=== PATIENT | male | born 1970 | race Caucasian/White ===

== ENCOUNTER 2017-02-18 15:34 | Emergency (ER) | payer MEDICAID ==
[~2017-02-18] VITALS: Ht 180.3 cm; Wt 176.0 kg
[2017-02-18 17:25] VITALS: BP 149/99
== END 2017-02-18 17:25 | disposition home or self-care (01) ==
LOC: ED 15:34
DX: M65.4 Radial styloid tenosynovitis [de Quervain] (principal); E11.9 Type 2 diabetes mellitus without complications; I10 Essential (primary) hypertension; E66.01 Morbid (severe) obesity due to excess calories
CPT/HCPCS: J1100; J1885

== ENCOUNTER 2017-11-03 16:31 | Inpatient (IN) | payer OTHER ==
[~2017-11-03] VITALS: Ht 180.3 cm; Wt 173.4 kg
--- NOTE | 2017-11-03 17:00 | NUR ---
PT STATES HE NOTICED A SMALL RED DOT/SHELBY YESTERDAY TO RT LOWER ABDOMEN. STATES HE NOTICED RAPID PROGRESSION OF REDNESS AND PAIN FROM THAT POINT FORWARD. THIS AFTERNOON HE STATES AREA BECAME HOT TO TOUCH AND INCREASINGLY MORE PAINFUL. COMFORT MEASURES AND SUPPORTIVE CARE INITIATED. PREP FOR ERMD MSE.
--- NOTE | 2017-11-03 17:35 | NUR ---
ULTRASOUND AT . ALL LAB DRAWN AND SENT.
[2017-11-03 17:39] LABS: BASOPHIL % 0.7 % (0-2); PLATELET COUNT 261 x10^3mcL (130-400)
[2017-11-03 17:48] LABS: CALCIUM 9.2 mg/dL (8.5-10.1); CARBON DIOXIDE 26.6 mmol/L (21-32); CHLORIDE SERUM 97 mmol/L (98-107); CREATININE SERUM 0.9 mg/dL (0.7-1.3); GFR1 > 60 mL/min; GLUCOSE SERUM 303 mg/dL (74-106); POTASSIUM SERUM 3.8 mmol/L (3.5-5.1); SODIUM SERUM 132 mmol/L (136-145)
[2017-11-03 17:52] LABS: RED CELL DISTRIBUTION WIDTH 16.5 % (11.5-14.5)
--- NOTE | 2017-11-03 17:53 | NUR ---
EKG DONE, IV ABX INITIATED.
[2017-11-03 17:58] LABS: ALBUMIN 3.5 g/dL (3.4-5.0); ALKALINE PHOSPHATASE 97 U/L (46-116); ALT/SGPT 11 U/L (16-63); AST/SGOT 17 U/L (15-37); BILIRUBIN TOTAL 0.37 mg/dL (0.20-1.00); TOTAL PROTEIN, SERUM 8.1 g/dL (6.4-8.2)
[2017-11-03] MEDS ORDERED: [UNRECOGNIZED DRUG - OTHER] (17:58)
[2017-11-03] MEDS ORDERED: PEPCID20 MG (17:59)
[2017-11-03] MEDS ORDERED: LISINOPRIL2.5 MG (17:59)
[2017-11-03] MEDS ORDERED: HUMALOG100 U/ML (17:59)
[2017-11-03] MEDS ORDERED: METOPROLOL SUCC50 M2 (17:59)
[2017-11-03] MEDS ORDERED: FLEXEPAX COMBO1 EACH (18:00)
--- NOTE | 2017-11-03 18:00 | NUR ---
PENDING ADMIT. MRSA SWAB OBTAINED. MED REC DONE. BELONGINGS DONE.
--- NOTE | 2017-11-03 18:14 | NUR ---
REPORT CALLED TO LACHO ARCHIBALD FOR TRANSPORT TO ROOM 200A.
[2017-11-03 18:32] LABS: MAGNESIUM 1.8 mg/dL (1.8-2.4); PHOSPHOROUS 3.3 mg/dL (2.5-4.9)
[2017-11-03 18:34] LABS: CHOLESTEROL/HDL RATIO 4.7
[2017-11-03 18:39] LABS: FREE T4 1.05 ng/dL (0.76-1.46); FREE THYROXINE INDEX 2.7 ug/dL (1.4-4.5); T4(THYROXINE) 8.1 ug/dL (4.7-13.3)
[2017-11-03 18:42] LABS: T3 TOTAL 1.27 ng/mL
--- NOTE | 2017-11-03 18:52 | NUR ---
PENDING TRANSPORT TO UNIT. DR. ACUNA ATTEMPTS TO ASPIRATE AT LOWER RT ABD SITE PRIOR TO CHART COMPLETION AND TRANSPORT TO UNIT. DR. ACUNA STATES ONLY MINUTE AMOUNT DRAINAGE, NOT ENOUGH TO SEND TO LAB. TO ENDORSE CONTINUED CARE TO NOC RN FOR TRANSPORT TO UNIT.
--- NOTE | 2017-11-03 19:02 | NUR ---
UPDATE CALLED TO SANG ARCHIBALD FOR TRANSPORT TO UNIT NOW.
--- NOTE | 2017-11-03 19:20 | NUR ---
RECEIVED PT FROM ED VIA [email or web address], CAME IN DUE TO ABDOMINAL PAIN AND REDNESS THAT STARTED LAST NIGHT. AAOX4. NO SOB NOTED. NSR ON THE MONITOR. C/O 9/10 BURNING PAIN ON THE RLQ, WORSE WHEN TOUCHED. PT'S RLQ OF THE ABDOMEN IS RED AND WARM TO TOUCH. IV SITE PATENT AND INTACT. SIDE RAILS UPX2. CALL LIGHT ON REACH. ENDORSED TO PRIMARY NURSE SHARLA FOR CONTINUITY OF CARE.
[2017-11-03 19:29] VITALS: BP 149/79
--- NOTE | 2017-11-03 19:40 | NUR ---
ERECEIVED PT FROM DRAGAN HINSON, ALL QUESTIONS ADDRESSED, WILL ENDORSE CARE. PT LYING IN BED, AOX4, C/O PAIN IN ABD AREA, BURNING 8/10, DOES NOT RADIATE. EDEMA NOTED BLE, NO OTHER COMPLAINTS. WILL CONTINUE TO MONITOR
[2017-11-03 21:24] VITALS: BP 149/79
--- NOTE | 2017-11-03 21:49 | NUR ---
DR ORTA AT BEDSIDE, NO NEW ORDERS, WILL CONTINUE TO MONITOR
[2017-11-03 22:14] VITALS: BP 121/77
--- NOTE | 2017-11-04 01:12 | NUR ---
PT IN BED RESTING, NO S/S OF DISTRESS, WILL CONTINUE TO MONITOR
--- NOTE | 2017-11-04 02:26 | NUR ---
DR ORTA ORDERED TO TITRATE NS TO 150ML/HR, WILL CONTINUE TO MONITOR
[2017-11-04 04:00] VITALS: BP 132/92
[2017-11-04 07:25] LABS: BASOPHIL % 0.3 % (0-2); PLATELET COUNT 212 x10^3mcL (130-400)
[2017-11-04 07:45] LABS: CALCIUM 8.1 mg/dL (8.5-10.1); CARBON DIOXIDE 26.5 mmol/L (21-32); CHLORIDE SERUM 100 mmol/L (98-107); CREATININE SERUM 0.7 mg/dL (0.7-1.3); GFR1 > 60 mL/min; GLUCOSE SERUM 246 mg/dL (74-106); MAGNESIUM 1.8 mg/dL (1.8-2.4); PHOSPHOROUS 3.3 mg/dL (2.5-4.9); POTASSIUM SERUM 3.9 mmol/L (3.5-5.1); SODIUM SERUM 133 mmol/L (136-145)
--- NOTE | 2017-11-04 08:00 | NUR ---
AWAKE AND ALERT. TEMP 98.9. TELE #8 SINUS RHYTHM RATE 89. RESP 18 EVEN. BREATH SOUNDS CLEAR. PULSE OX 96% RA. ABD ROUNDED AND SOFT, BOWEL TONES PRESENT. RIGHT QUADRANT NOTED WITH AREA CIRCLED FROM ER I&D SITE. NO DRAINAGE NOTED AT THIS TIME. AREA REMAINS REDDENED IN COLOR. PAIN SCALE 5/10 AT THIS TIME. REPORTS "GOOD RELIEF FROM EARLIER PAIN PILL." PT IS OBESE. NO PITTING EDEMA. PULSES PRESENT. SCD ORDERED FROM EXECUTIVE ADVISOR. IV PATEN RIGHT HAND INFUSING NORMAL SALINE 150CC/HR. SIDE RAILS UP X2. CALL LIGHT IN REACH.
--- NOTE | 2017-11-04 09:50 | NUR ---
DR WU IN TO SEE PT. ORDERS TO KEEP PT NPO FOR I&D RIGHT ABD ABSCESS. PT UPDATED WITH PLAN OF CARE. PT C/O DISCOMFORT TO RIGHT SIDE OF ABD 07/07. REQUESTS PAIN MED. MED WITH DILAUDID 2MG PO AND TORADOL 30MG IVP ORDERED. RADHA RN IN SURGERY UPDATED WITH PT STATUS.
[2017-11-04 10:30] VITALS: BP 154/95
--- NOTE | 2017-11-04 10:45 | NUR ---
PT REPORTS "PAIN IS MUCH BETTER 2/10." INSTRUCTED WITH NEED FOR URINE SAMPLE. CONTAINER PROVIDED.
[2017-11-04 13:08] LABS: UA SPECIFIC GRAVITY 1.015 (1.005-1.035); microscopic required? YES; urine erythrocyte 1+ (NEGATIVE)
[2017-11-04 14:40] VITALS: BP 128/85
--- NOTE | 2017-11-04 15:00 | NUR ---
IV CONVERTED TO SALINE LOCK. ARMBAND IDENTIFIED. PT TAKEN DOWN TO OR VIA GURNEY AT THIS TIME.
[2017-11-04 15:09] LABS: AMPHETAMINE QUAL UR NONE DETECTED (NEG <=1000)
--- NOTE | 2017-11-04 17:10 | NUR ---
RETURNED FROM RECOVERY ROOM POST OP TO 200b. MADE COMFORTABLE. TEMP 98.2. TELE APPLIED SINUS RHYTHM. GL=212/80. DRESSING CDI RIGHT ABD. C/O MILD BURNING 5/10. HAS NOT VOIDED. NO EDEMA. SCD IN PLACE. IV PATENT RIGHT HAND. IVF RESUMED. CALL LIGHT IN REACH.
--- NOTE | 2017-11-04 17:30 | NUR ---
RIL=[id number]. RISS 6 UNITS COVERAGE. DINNER ORDERED. C/O BURNING PAIN 07/07 TO INCISIONAL SITE. MED WITH TORADOL 30MG IVP ORDERED. CALL LIGHT IN REACH.
--- NOTE | 2017-11-04 18:00 | NUR ---
REPORTS "STILL HAVING BURNING IN INCISION. PAIN 07/07. REQUESTS DILAUDID PO. MED WITH DILAUDID 2MG PO ORDERED.
--- NOTE | 2017-11-04 18:45 | NUR ---
REPORTS "FEELING BETTER PAIN DOWN TO 2/10." EATING DINNER MEAL. CALL LIGHT IN REACH.
--- NOTE | 2017-11-04 19:35 | NUR ---
RECEIVED REPORT FROM DAY SHIFT RN. PT RESTING IN BED COMFORTABLY. MINIMAL ABD DISCOMFORT. REFUSED PAIN MEDICATION AT THIS TIME. NO RESP DISTRESS ON ROOM AIR. ABD DRESSING ON RLQ, CDI. IV ON RIGHT HAND, NS INFUSING. SAFETY MEASURES IN PLACE. INSTRUCTED PT TO CALL IF ASSISTANCE IS NEEDED. CALL LIGHT WITHIN REACH.
[2017-11-04 20:58] VITALS: BP 107/67
[2017-11-05] VITALS (7 sets, daily range): BP systolic 146–168; BP diastolic 89–100; Ht 180.3 cm; Wt 173.4 kg
--- NOTE | 2017-11-05 06:40 | NUR ---
PT SLEPT AT LONG INTERVALS THROUGHOUT SHIFT. C/O ABD PAIN X2, MEDICATED WITH DILAUDID. SAFETY MEASURES MAINTAINED. BED IN LOWEST POSITION. SIDE RAILS UP X2. CALL LIGHT WITHIN REACH.
[2017-11-05 06:54] LABS: BASOPHIL % 0.4 % (0-2); PLATELET COUNT 210 x10^3mcL (130-400)
[2017-11-05 06:57] LABS: CALCIUM 8.2 mg/dL (8.5-10.1); CARBON DIOXIDE 26.3 mmol/L (21-32); CHLORIDE SERUM 102 mmol/L (98-107); CREATININE SERUM 0.6 mg/dL (0.7-1.3); GFR1 > 60 mL/min; GLUCOSE SERUM 190 mg/dL (74-106); SODIUM SERUM 132 mmol/L (136-145)
[2017-11-05 07:07] LABS: RED CELL DISTRIBUTION WIDTH 16.9 % (11.5-14.5)
--- NOTE | 2017-11-05 08:10 | NUR ---
PT AWAKE AND ALERT. TEMP 98.7. TELE #8 SINUS RHYTHM RATE 68. RESP 20 EVEN. BREATH SOUNDS CLEAR. PULSE OX 94% RA. ABD ROUNDED PT OBESE WITH PENDULOUS ABD. DRESSING CDI RMQ. C/O BURING PAIN 07/07. REQUESTS TORADOL. MED WITH TORADOL 30MG IVP ORDERED. UP TO BATHROOM AND VOIDED. IV PATENT RAC INFUSING NORMAL SALINE 150CC/HR. NO PITTING EDEMA. PULSES PRESENT. SCD IN PLACE. SIDE RAILS UP X2. CALL LIGHT IN REACH.
--- NOTE | 2017-11-05 08:30 | NUR ---
PT REPORTS PAIN HAS "COME DOWN TO 4/10, BETTER." DR MEDINA HERE ON ROUNDS. UPDATED WITH PT STATUS. NO CHANGE IN ORDERS.
--- NOTE | 2017-11-05 09:00 | NUR ---
DR MORGAN AND MEDICAL TEAM IN ON ROUNDS. CHARGE NURSE PRESENT. REVIEWED PLAN OF CARE. PT VERBALIZED UNDERSTANDING.
--- NOTE | 2017-11-05 10:00 | NUR ---
DR WU IN TO SEE PT.
--- NOTE | 2017-11-05 12:00 | NUR ---
GGL=[id number]. RISS 3 UNITS COVERAGE. AMBULATES WELL IN HALLWAY. PASSING SOME GAS, NO BM SINCE SURGERY.
--- NOTE | 2017-11-05 14:01 | NUR ---
PT C/O ABD INCISIONAL DISCOMFORT 06/06. MED WITH TORADOL 30MG IVP. DRESSING REMOVED FROM ABD. PACKING NOTED. WOUND CULTURE TAKEN ORDERED SENT TO LAB. DRESSING APPLIED. SECURED WITH TAPE. TOLERATED WELL. CALL LIGHT IN REACH.
--- NOTE | 2017-11-05 14:30 | NUR ---
REPORTS "PAIN DOWN TO 4/10." AMBULATES WELL.
--- NOTE | 2017-11-05 15:00 | NUR ---
PT SLEEPING, NO DISTRESS. IV PATENT.
--- NOTE | 2017-11-05 17:00 | NUR ---
PT C/O INCISIONAL BURNING PAIN 07/07. BP ELEVATED. SEE DOCUMENTATION. MED WITH DILAUDID 2MG PO ORDERED. ZEY=[id number]. TO COVER WITH RISS 3 UNITS SQ.
--- NOTE | 2017-11-05 17:50 | NUR ---
PT AWAKE EATING DINNER MEAL. STATES "FEELS BETTER NOW, PAIN DOWN TO 4/10. I REALLY FEEL IT WHEN THE TORADOL WEARS OFF." MW=[id number]/[phone]. CALL LIGHT IN REACH. NO BM YET.
--- NOTE | 2017-11-05 19:30 | NUR ---
RECEIVED REPORT FROM DAY SHIFT RN. PT RESTING IN BED COMFORTABLY. NO SOB ON ROOM AIR. NO C/O PAIN AT THIS TIME. ABD DRESSING, CDI. IV ON R HAND, NS INFUSING. SAFETY MEASURES IN PLACE. BED IN LOWEST POSITION. SIDE RAILS UP X2. INSTRUCTED PT TO CALL IF ASSISTANCE IS NEEDED. CALL LIGHT WITHIN REACH.
--- NOTE | 2017-11-05 22:10 | NUR ---
ENDORSED CONTINUITY OF CARE TO DRAGAN PURI.
--- NOTE | 2017-11-05 22:14 | NUR ---
RECEIVED REPORT AND PATIENT FROM DRAGAN VASQUEZ TO RESUME CARE.
--- NOTE | 2017-11-06 05:05 | NUR ---
PATIENT RESTED IN INTERVALS THROUGHOUT THE NIGHT. NO DISTRESS NOTED. MEDICATED FOR ABD PAIN WITH DILAUDID PO X 2 PER DOCTOR'S PRN ORDER. PAIN MANAGED THROUGHOUT THE NIGHT. ALL NEEDS MET. SAFETY AND COMFORT MEASURES MAINTAINED. BED IN LOWEST POSITION. CALL LIGHT WITHIN REACH. WILL CONTINUE TO MONITOR AND ENDORSE CARE TO NEXT SHIFT NURSE.
[2017-11-06 05:12] VITALS: BP 159/96
[2017-11-06 06:19] LABS: CALCIUM 8.4 mg/dL (8.5-10.1); CARBON DIOXIDE 23.7 mmol/L (21-32); CHLORIDE SERUM 100 mmol/L (98-107); CREATININE SERUM 0.7 mg/dL (0.7-1.3); GFR1 > 60 mL/min; GLUCOSE SERUM 161 mg/dL (74-106); POTASSIUM SERUM 3.9 mmol/L (3.5-5.1); SODIUM SERUM 131 mmol/L (136-145)
[2017-11-06 06:26] LABS: BASOPHIL % 0.3 % (0-2); PLATELET COUNT 252 x10^3mcL (130-400)
[2017-11-06 06:53] LABS: RED CELL DISTRIBUTION WIDTH 17.3 % (11.5-14.5)
--- NOTE | 2017-11-06 07:35 | NUR ---
RECEIVED THE PATIENT AWAKE AND ORIENTED TO PERSON, PLACE AND TIME. DENIED ANY SHORTNESS OF BREATH, NAUSEA/VOMITING. PATIENT STATED HAVING MILD SORENESS TO RLQ WOUND, AND TOLERATED THE PAIN. CONTINUE TO MONITOR AND MEDICATE FOR PAIN PRN. RLQ WOUND WITH DRESSING INTACT. IVF NS VIA H/L TO RIGHT HAND. TELE # 8 READS SINUS TACHYCARDIA. CALL LIGHT WITHIN REACH. SIDE RAILS UP X3.
--- NOTE | 2017-11-06 09:45 | NUR ---
DR. MEDINA-RESIDENT WAS NOTIFIED THAT THE PATIENT'S MONITOR SHOWS OCCASIONAL PVC AND 1 DROP OF QRS AT ABOUT 0705 AM THIS MORNING. DOCTOR ORDERED EKG TO CHECK THE RHYTHMS AGAIN.
--- NOTE | 2017-11-06 09:55 | NUR ---
DR. MOCTEZUMA AND THE TEAM WERE MAKING ROUND TO SEE THE PATIENT. THE CARE PLAN WAS DISCUSSED WITH THE PATIENT; THE PATIENT VERBALIZED UNDERSTANDING.
[2017-11-06 10:05] VITALS: BP 148/98
[2017-11-06 14:20] VITALS: BP 145/85
[2017-11-06] MEDS ORDERED: CLINDAMYCIN HC300 MG PO (14:30)
[2017-11-06] MEDS ORDERED: BD LACTINEX1.4 MG PO (14:30)
[2017-11-06] MEDS ORDERED: NOR10T PO (14:31)
[2017-11-06] MEDS ORDERED: COLACE100 MG PO (14:32)
--- NOTE | 2017-11-06 14:58 | NUR ---
DR. WU CALLED IN AND VERBALIZED ORDERING TO CHANGE THE PACKING AND DRESSING. THE OLD DRESSING AND PACKING WERE REMOVED. THE WOUND WAS CLEANSED WITH WOUND CLEANSER, AND THE PHOTO WAS TAKEN BEFORE THE WOUND WAS PACKED AND NEW DRESSING WAS APPLIED. DILAUDID 2MG PO WAS MEDICATED TO THE PATIENT BEFORE THE PROCEDURE; THE PATIENT TOLERATED THE PROCEDURE.
[2017-11-06 15:20] VITALS: BP 145/85
--- NOTE | 2017-11-06 16:00 | NUR ---
DR. MEDINA-RESIDENT VERBALIZED, "DISCHARGE THE PATIENT HOME NOW. PER THE BRONZE CHASER, THE PATIENT'S HEALTH INSURANCE AGENCY WILL SET UP HOME HEALTH FOR WOUND CARE FOR THE PATIENT."
--- NOTE | 2017-11-06 16:01 | NUR ---
DR. MEDINA-RESIDENT SAID, "DISCHARGE THE PATIENT HOME; TOMORROW, THE SUBMARINE ADVISORY TEAM WATCH OFFICER WILL CONTACT THE PATIENT'S INSURANCE AGENCY TO SET UP HOME HEALTH FOR WOUND CARE. DISCHARGE INSTRUCTION AND PRESCRIPTION WERE IMPLEMENTED TO THE PATIENT. THE QUESTIONS WERE ANSWERED, AND THE PATIENT VERBALIZED UNDERSTANDING. H/L WAS REMOVED WITH CATH INTACT. TELE WAS REMOVED. THE PATIENT WAS WAITING FOR A RIDE.
--- NOTE | 2017-11-06 16:06 | NUR ---
DISCHARGE INSTRUCTION AND PRESCRIPTION WERE IMPLEMENTED TO THE PATIENT. ALL QUESTIONS WERE ANSWERED, AND THE PATIENT VERBALIZED UNDERSTANDING. H/L WAS REMOVED WITH CATH INTACT. TELE WAS REMOVED. THE PATIENT WAS WAITING FOR A RIDE.
--- NOTE | 2017-11-06 16:10 | NUR ---
THE PATIENT WAS TAKEN TO THE LOBBY VIA WHEELCHAIR IN STABLE CONDITION. ALL BELONGINGS WERE SENT HOME WITH THE PATIENT UPON DISCHARGE.
== END 2017-11-06 16:10 | disposition home health service (06) | DRG 364 ==
LOC: ED 16:31 → DU 17:42
PROVIDERS: Emergency Medicine; Student in an Organized Health Care Education/Training Program; Surgery; ADMIT Family Medicine
PROC: 0W9F0ZZ Drainage of Abdominal Wall, Open Approach (ICD-10-PCS; principal; 2017-11-04 14:00)
DX: L02.211 Cutaneous abscess of abdominal wall (principal); N17.0 Acute kidney failure with tubular necrosis; D68.69 Other thrombophilia; E87.8 Other disorders of electrolyte and fluid balance, not elsewhere classified; E11.65 Type 2 diabetes mellitus with hyperglycemia; E87.1 Hypo-osmolality and hyponatremia; L03.311 Cellulitis of abdominal wall; N39.0 Urinary tract infection, site not specified; M54.9 Dorsalgia, unspecified; G89.29 Other chronic pain; E78.1 Pure hyperglyceridemia; E78.5 Hyperlipidemia, unspecified; I10 Essential (primary) hypertension; Z79.4 Long term (current) use of insulin; Z68.43 Body mass index [BMI] 50.0-59.9, adult
CPT/HCPCS: 82962; 83880; 84439; 94150; J0696; J1170; J1815; J1885; J2001; J2175; J2250; J2543; J2704; J3010; J3490; J7030; Q0092; Q0162

== ENCOUNTER 2017-11-15 04:51 | Inpatient (IN) | payer OTHER ==
[2017-11-15] VITALS (8 sets, daily range): BP systolic 123–179; BP diastolic 76–126; Ht 180.3 cm; Wt 137.4 kg
[~2017-11-15] VITALS: Ht 180.3 cm; Wt 137.4 kg
[~2017-11-15 04:51] MED LIST: BD LACTINEX1.4 MG PO; CLINDAMYCIN HC300 MG PO; COLACE100 MG PO; FLEXEPAX COMBO1 EACH; HUMALOG100 U/ML; LISINOPRIL2.5 MG PO; METOPROLOL SUCC50 M2; NOR10T PO; PEPCID20 MG; [UNRECOGNIZED DRUG - OTHER]
[2017-11-15 08:33] LABS: CALCIUM 8.5 mg/dL (8.5-10.1); CARBON DIOXIDE 25.3 mmol/L (21-32); CHLORIDE SERUM 101 mmol/L (98-107); CREATININE SERUM 0.6 mg/dL (0.7-1.3); GFR1 > 60 mL/min; GLUCOSE SERUM 283 mg/dL (74-106); POTASSIUM SERUM 3.9 mmol/L (3.5-5.1); SODIUM SERUM 135 mmol/L (136-145)
[2017-11-15 08:44] LABS: MAGNESIUM 1.8 mg/dL (1.8-2.4); PHOSPHOROUS 3.7 mg/dL (2.5-4.9)
[2017-11-15 08:51] LABS: CHOLESTEROL/HDL RATIO 4.7
[2017-11-15 09:01] LABS: T3 TOTAL 1.12 ng/mL
[2017-11-15] MEDS ORDERED: AMITRIPTYLINE H25 MG PO (09:10)
[2017-11-15] MEDS ORDERED: METOPROLOL SUCC50 M2 PO (09:21)
[2017-11-15 09:28] LABS: BASOPHIL % 0.4 % (0-2); PLATELET COUNT 240 x10^3mcL (130-400)
[2017-11-15 09:29] LABS: RED CELL DISTRIBUTION WIDTH 16.9 % (11.5-14.5)
[2017-11-15 09:38] LABS: FREE T4 1.21 ng/dL (0.76-1.46); T4(THYROXINE) 7.9 ug/dL (4.7-13.3)
[2017-11-15 20:28] LABS: UA SPECIFIC GRAVITY 1.015 (1.005-1.035); microscopic required? YES; urine erythrocyte NEGATIVE (NEGATIVE)
[2017-11-15 20:36] LABS: AMPHETAMINE QUAL UR NONE DETECTED (NEG <=1000)
[2017-11-16 05:30] VITALS: BP 148/82
[2017-11-16 05:35] VITALS: BP 138/93
[2017-11-16 07:23] LABS: CALCIUM 7.9 mg/dL (8.5-10.1); CHLORIDE SERUM 100 mmol/L (98-107); CREATININE SERUM 0.7 mg/dL (0.7-1.3); GFR1 > 60 mL/min; GLUCOSE SERUM 194 mg/dL (74-106); MAGNESIUM 1.8 mg/dL (1.8-2.4); PHOSPHOROUS 3.1 mg/dL (2.5-4.9); POTASSIUM SERUM 3.8 mmol/L (3.5-5.1); SODIUM SERUM 134 mmol/L (136-145)
[2017-11-16 07:36] LABS: PLATELET COUNT 231 x10^3mcL (130-400)
[2017-11-16 07:37] LABS: BASOPHIL % 2.2 % (0-2); RED CELL DISTRIBUTION WIDTH 15.4 % (11.5-14.5)
[2017-11-16 09:33] VITALS: BP 154/103
[2017-11-16 11:08] VITALS: BP 131/86
[2017-11-16 11:47] VITALS: BP 131/86
[2017-11-16] MEDS ORDERED: AVIDOXY100 MG PO ×3 (12:04→13:40)
[2017-11-16] MEDS ORDERED: NORCO1 TA2 PO ×2 (12:13→13:40)
[2017-11-16] MEDS ORDERED: LISINOPRIL2.5 MG PO ×2 (13:17→13:40)
[2017-11-16] MEDS ORDERED: AMITRIPTYLINE H25 MG PO ×2 (13:21→13:40)
[2017-11-16] MEDS ORDERED: BD LACTINEX1.4 MG PO ×2 (13:21→13:40)
[2017-11-16] MEDS ORDERED: PEPCID20 MG PO ×2 (13:21→13:40)
[2017-11-16] MEDS ORDERED: COLACE100 MG PO ×2 (13:21→13:40)
[2017-11-16] MEDS ORDERED: METOPROLOL SUCC50 M2 PO (13:40)
== END 2017-11-16 14:45 | disposition home or self-care (01) | DRG 791 ==
LOC: ED 04:51 → DU 05:52
PROVIDERS: Emergency Medicine; Surgery; ADMIT Family Medicine
PROC: 0WQF0ZZ Repair Abdominal Wall, Open Approach (ICD-10-PCS; principal; 2017-11-15 09:30)
DX: T81.32XA Disruption of internal operation (surgical) wound, not elsewhere classified, initial encounter (principal); D68.69 Other thrombophilia; E11.65 Type 2 diabetes mellitus with hyperglycemia; E87.1 Hypo-osmolality and hyponatremia; G89.29 Other chronic pain; M54.5 Low back pain; M19.90 Unspecified osteoarthritis, unspecified site; Z79.4 Long term (current) use of insulin; Z68.31 Body mass index [BMI] 31.0-31.9, adult; Z87.891 Personal history of nicotine dependence; Z87.11 Personal history of peptic ulcer disease
CPT/HCPCS: 82962; 83880; 84439; C1758; J0690; J1580; J1815; J2001; J2175; J2250; J2405; J2704; J3010; J3490; J7030; Q0092

== ENCOUNTER 2017-12-03 08:56 | Inpatient (IN) | payer OTHER ==
[~2017-12-03] VITALS: Ht 177.8 cm; Wt 169.9 kg
[~2017-12-03 08:56] MED LIST changes: +AMITRIPTYLINE H25 MG PO; +AVIDOXY100 MG PO; +METOPROLOL SUCC50 M2 PO; +NORCO1 TA2 PO; +PEPCID20 MG PO
[2017-12-03 08:59] VITALS: Ht 177.8 cm; Wt 169.9 kg
[2017-12-03 10:05] LABS: microscopic required? NO
[2017-12-03 10:13] LABS: BASOPHIL % 0.4 % (0-2); PLATELET COUNT 193 x10^3mcL (130-400)
[2017-12-03 10:25] LABS: UA SPECIFIC GRAVITY 1.015 (1.005-1.035); urine erythrocyte NEGATIVE (NEGATIVE)
[2017-12-03 10:29] LABS: CALCIUM 8.5 mg/dL (8.5-10.1); CARBON DIOXIDE 22.5 mmol/L (21-32); CHLORIDE SERUM 99 mmol/L (98-107); CREATININE SERUM 0.8 mg/dL (0.7-1.3); GFR1 > 60 mL/min; GLUCOSE SERUM 416 mg/dL (74-106); POTASSIUM SERUM 3.9 mmol/L (3.5-5.1); SODIUM SERUM 134 mmol/L (136-145)
[2017-12-03 10:40] LABS: ALKALINE PHOSPHATASE 99 U/L (46-116); ALT/SGPT 30 U/L (16-63); AST/SGOT 21 U/L (15-37); BILIRUBIN TOTAL 0.36 mg/dL (0.20-1.00); C REACTIVE PROTEIN 1.6 mg/dL (<=0.9); TOTAL PROTEIN, SERUM 7.1 g/dL (6.4-8.2)
[2017-12-03 10:41] LABS: ALBUMIN 3.1 g/dL (3.4-5.0)
[2017-12-03 10:46] LABS: CK-MB 3.3 ng/mL (0-3.6)
[2017-12-03 10:52] LABS: T3 TOTAL 1.11 ng/mL
[2017-12-03 10:55] LABS: FREE T4 1.14 ng/dL (0.76-1.46); FREE THYROXINE INDEX 3.1 ug/dL (1.4-4.5); T4(THYROXINE) 8.4 ug/dL (4.7-13.3)
[2017-12-03 10:57] LABS: ERYTHROCYTE SED RATE 13 mm/hr (0-15)
[2017-12-03 12:46] VITALS: BP 140/91
[2017-12-03 12:52] LABS: CHOLESTEROL/HDL RATIO 6.7; MAGNESIUM 1.7 mg/dL (1.8-2.4); PHOSPHOROUS 3.7 mg/dL (2.5-4.9)
[2017-12-03 17:25] VITALS: BP 135/86
[2017-12-03 21:00] VITALS: BP 147/85
[2017-12-03 21:05] LABS: AMPHETAMINE QUAL UR NONE DETECTED (NEG <=1000)
[2017-12-04 05:13] VITALS: BP 142/94
[2017-12-04 06:51] LABS: BASOPHIL % 0.4 % (0-2); PLATELET COUNT 189 x10^3mcL (130-400)
[2017-12-04 06:54] LABS: RED CELL DISTRIBUTION WIDTH 17.2 % (11.5-14.5)
[2017-12-04 07:16] LABS: CALCIUM 8.3 mg/dL (8.5-10.1); CARBON DIOXIDE 23.2 mmol/L (21-32); CHLORIDE SERUM 101 mmol/L (98-107); CREATININE SERUM 0.6 mg/dL (0.7-1.3); GFR1 > 60 mL/min; GLUCOSE SERUM 256 mg/dL (74-106); MAGNESIUM 1.9 mg/dL (1.8-2.4); PHOSPHOROUS 3.1 mg/dL (2.5-4.9); SODIUM SERUM 133 mmol/L (136-145)
[2017-12-04 09:30] VITALS: BP 143/92
[2017-12-04 18:45] VITALS: BP 152/96
[2017-12-04 21:35] VITALS: BP 139/91
[2017-12-05 03:38] VITALS: BP 130/75
[2017-12-05 06:42] LABS: BASOPHIL % 0.4 % (0-2); PLATELET COUNT 192 x10^3mcL (130-400)
[2017-12-05 06:46] LABS: CALCIUM 8.2 mg/dL (8.5-10.1); CARBON DIOXIDE 27.4 mmol/L (21-32); CHLORIDE SERUM 100 mmol/L (98-107); CREATININE SERUM 0.7 mg/dL (0.7-1.3); GFR1 > 60 mL/min; GLUCOSE SERUM 203 mg/dL (74-106); POTASSIUM SERUM 4.3 mmol/L (3.5-5.1); SODIUM SERUM 134 mmol/L (136-145)
[2017-12-05 06:48] LABS: RED CELL DISTRIBUTION WIDTH 16.9 % (11.5-14.5)
[2017-12-05] MEDS ORDERED: CLINDAMYCIN HC300 MG PO (09:12)
[2017-12-05] MEDS ORDERED: COL100 PO (09:13)
[2017-12-05] MEDS ORDERED: LAC PO (09:14)
[2017-12-05] MEDS ORDERED: GLU500 PO (09:15)
[2017-12-05] MEDS ORDERED: LEVEMIR100 U/M1 SQ (09:17)
[2017-12-05] MEDS ORDERED: LANCET DEVICE1 EACH MC (09:19)
[2017-12-05] MEDS ORDERED: ADVOCATE SYRIN1 EAC1 MC (09:20)
[2017-12-05] MEDS ORDERED: APAP/HYDROCODON1 T13 PO (09:21)
[2017-12-05 10:11] VITALS: BP 155/90
[2017-12-05 13:38] VITALS: BP 155/90
[2017-12-05 16:48] VITALS: BP 150/87
[2017-12-05 21:10] VITALS: BP 139/84
[2017-12-06 05:34] VITALS: BP 128/73
[2017-12-06 06:37] LABS: CALCIUM 8.6 mg/dL (8.5-10.1); CARBON DIOXIDE 24.8 mmol/L (21-32); CHLORIDE SERUM 100 mmol/L (98-107); CREATININE SERUM 0.6 mg/dL (0.7-1.3); GFR1 > 60 mL/min; GLUCOSE SERUM 203 mg/dL (74-106); MAGNESIUM 1.6 mg/dL (1.8-2.4); PHOSPHOROUS 3.6 mg/dL (2.5-4.9); SODIUM SERUM 133 mmol/L (136-145)
[2017-12-06 06:46] LABS: RED CELL DISTRIBUTION WIDTH 16.2 % (11.5-14.5)
[2017-12-06 06:47] LABS: BASOPHIL % 0.3 % (0-2); PLATELET COUNT 184 x10^3mcL (130-400)
[2017-12-06 09:46] VITALS: BP 149/82
[2017-12-06 10:59] VITALS: BP 149/82
[2017-12-06] MEDS ORDERED: BACTRIM1 TAB PO (15:37)
== END 2017-12-06 17:02 | disposition home health service (06) | DRG 383 ==
LOC: ED 08:56 → DU 10:23 → MU 10:23 → DU 12:19 → MU 12-04 07:47
PROVIDERS: Family Medicine; Specialist
DX: L03.311 Cellulitis of abdominal wall (principal); E44.0 Moderate protein-calorie malnutrition; E11.65 Type 2 diabetes mellitus with hyperglycemia; E87.1 Hypo-osmolality and hyponatremia; E83.42 Hypomagnesemia; E66.01 Morbid (severe) obesity due to excess calories; Z68.43 Body mass index [BMI] 50.0-59.9, adult; I16.0 Hypertensive urgency; I10 Essential (primary) hypertension; M54.5 Low back pain; G89.29 Other chronic pain; E78.1 Pure hyperglyceridemia; F32.9 Major depressive disorder, single episode, unspecified; Z79.4 Long term (current) use of insulin
CPT/HCPCS: 82962; 83880; 84439; G0480; J0713; J1170; J1815; J1885; J2270; J2405; J3475; J3490; J7030; J7042; Q0092

== ENCOUNTER 2018-07-07 17:50 | Emergency (ER) | payer MEDICAID ==
[~2018-07-07] VITALS: Ht 180.3 cm; Wt 175.1 kg
[~2018-07-07 17:50] MED LIST changes: +ADVOCATE SYRIN1 EAC1 MC; +APAP/HYDROCODON1 T13 PO; +BACTRIM1 TAB PO; +COL100 PO; +GLU500 PO; +LAC PO; +LANCET DEVICE1 EACH MC; +LEVEMIR100 U/M1 SQ
[2018-07-07 18:03] VITALS: Ht 180.3 cm; Wt 175.1 kg
[2018-07-07 21:19] VITALS: BP 124/84
[2018-07-08] MEDS ORDERED: LANTUS SOLOS100 U/M1 SQ (03:20)
[2018-07-08] MEDS ORDERED: LISINOPRIL40 MG PO (03:22)
[2018-07-08] MEDS ORDERED: METOPROLOL TART25 M1 PO (03:22)
[2018-07-08] MEDS ORDERED: HUMALOG100 U/ML SC (03:22)
== END 2018-07-07 21:19 | disposition home or self-care (01) ==
LOC: ED 17:50
DX: L03.114 Cellulitis of left upper limb (principal); I10 Essential (primary) hypertension; E11.9 Type 2 diabetes mellitus without complications; Z91.018 Allergy to other foods
CPT/HCPCS: 82962; Q0162

== ENCOUNTER 2018-07-08 01:47 | Inpatient (IN) | payer MEDICAID ==
[~2018-07-08] VITALS: Ht 180.3 cm; Wt 174.6 kg
[2018-07-08 01:53] VITALS: Ht 180.3 cm; Wt 174.6 kg
[2018-07-08 02:43] LABS: BASOPHIL % 0.2 % (0-2); PLATELET COUNT 204 x10^3mcL (130-400)
[2018-07-08 02:44] LABS: RED CELL DISTRIBUTION WIDTH 16.7 % (11.5-14.5)
[2018-07-08 02:45] LABS: CALCIUM 8.2 mg/dL (8.5-10.1); CARBON DIOXIDE 22.3 mmol/L (21-32); CHLORIDE SERUM 100 mmol/L (98-107); CREATININE SERUM 0.9 mg/dL (0.7-1.3); GFR1 > 60 mL/min; GLUCOSE SERUM 397 mg/dL (74-106); POTASSIUM SERUM 3.9 mmol/L (3.5-5.1); SODIUM SERUM 131 mmol/L (136-145)
[2018-07-08 02:51] LABS: ALKALINE PHOSPHATASE 88 U/L (46-116); ALT/SGPT 31 U/L (16-63); AST/SGOT 21 U/L (15-37); TOTAL PROTEIN, SERUM 6.7 g/dL (6.4-8.2)
[2018-07-08 02:53] LABS: ALBUMIN 2.8 g/dL (3.4-5.0)
[2018-07-08] MEDS ORDERED: LANTUS SOLOS100 U/M1 SQ (03:20)
[2018-07-08] MEDS ORDERED: HUMALOG100 U/ML SC (03:22)
[2018-07-08] MEDS ORDERED: METOPROLOL TART25 M1 PO (03:22)
[2018-07-08] MEDS ORDERED: LISINOPRIL40 MG PO (03:22)
[2018-07-08 03:43] LABS: microscopic required? YES; urine erythrocyte TRACE (NEGATIVE)
[2018-07-08 03:51] LABS: AMPHETAMINE QUAL UR NONE DETECTED (See below)
[2018-07-08 04:28] VITALS: BP 138/84
[2018-07-08 04:38] LABS: MAGNESIUM 1.8 mg/dL (1.8-2.4); PHOSPHOROUS 3.1 mg/dL (2.5-4.9)
[2018-07-08 04:41] LABS: CHOLESTEROL/HDL RATIO 4.8
[2018-07-08 04:47] LABS: T3 TOTAL 0.97 ng/mL
[2018-07-08 05:48] LABS: FREE T4 1.12 ng/dL (0.76-1.46); FREE THYROXINE INDEX 2.3 ug/dL (1.4-4.5); T4(THYROXINE) 6.9 ug/dL (4.7-13.3)
[2018-07-08 07:38] LABS: BASOPHIL % 0.2 % (0-2); PLATELET COUNT 211 x10^3mcL (130-400)
[2018-07-08 07:41] LABS: RED CELL DISTRIBUTION WIDTH 16.7 % (11.5-14.5)
[2018-07-08 07:56] LABS: CALCIUM 7.8 mg/dL (8.5-10.1); CHLORIDE SERUM 103 mmol/L (98-107); CREATININE SERUM 0.7 mg/dL (0.7-1.3); GFR1 > 60 mL/min; GLUCOSE SERUM 247 mg/dL (74-106); POTASSIUM SERUM 3.9 mmol/L (3.5-5.1); SODIUM SERUM 135 mmol/L (136-145)
[2018-07-08 09:00] VITALS: BP 139/77
[2018-07-08 16:40] VITALS: BP 129/70
[2018-07-08 19:51] VITALS: BP 116/63
[2018-07-09 05:14] VITALS: BP 131/56
[2018-07-09 05:33] LABS: BASOPHIL % 0.6 % (0-2); PLATELET COUNT 214 x10^3mcL (130-400)
[2018-07-09 05:37] LABS: RED CELL DISTRIBUTION WIDTH 16.5 % (11.5-14.5)
[2018-07-09 05:57] LABS: CALCIUM 7.6 mg/dL (8.5-10.1); CARBON DIOXIDE 24.3 mmol/L (21-32); CHLORIDE SERUM 101 mmol/L (98-107); CREATININE SERUM 0.6 mg/dL (0.7-1.3); GFR1 > 60 mL/min; GLUCOSE SERUM 163 mg/dL (74-106); POTASSIUM SERUM 3.8 mmol/L (3.5-5.1); SODIUM SERUM 131 mmol/L (136-145)
[2018-07-09 09:42] VITALS: BP 142/78
[2018-07-09 16:45] VITALS: BP 133/79
[2018-07-09 21:01] VITALS: BP 104/60
[2018-07-10 05:58] VITALS: BP 125/82
[2018-07-10 06:35] LABS: CARBON DIOXIDE 22.3 mmol/L (21-32); CHLORIDE SERUM 104 mmol/L (98-107); CREATININE SERUM 0.5 mg/dL (0.7-1.3); GFR1 > 60 mL/min; GLUCOSE SERUM 174 mg/dL (74-106); POTASSIUM SERUM 3.4 mmol/L (3.5-5.1); SODIUM SERUM 133 mmol/L (136-145)
[2018-07-10 06:55] LABS: BASOPHIL % 0.2 % (0-2); PLATELET COUNT 207 x10^3mcL (130-400)
[2018-07-10 07:17] LABS: RED CELL DISTRIBUTION WIDTH 16.2 % (11.5-14.5)
[2018-07-10 08:49] VITALS: BP 129/72
[2018-07-10 17:25] VITALS: BP 117/71
[2018-07-10 21:07] VITALS: BP 132/71
[2018-07-11 05:43] VITALS: BP 148/96
[2018-07-11 06:28] LABS: BASOPHIL % 0.5 % (0-2); PLATELET COUNT 241 x10^3mcL (130-400)
[2018-07-11 06:35] LABS: CARBON DIOXIDE 26.8 mmol/L (21-32); CHLORIDE SERUM 102 mmol/L (98-107); CREATININE SERUM 0.6 mg/dL (0.7-1.3); GFR1 > 60 mL/min; GLUCOSE SERUM 171 mg/dL (74-106); MAGNESIUM 1.9 mg/dL (1.8-2.4); PHOSPHOROUS 2.7 mg/dL (2.5-4.9); POTASSIUM SERUM 4.2 mmol/L (3.5-5.1); SODIUM SERUM 134 mmol/L (136-145)
[2018-07-11 06:44] LABS: RED CELL DISTRIBUTION WIDTH 16.2 % (11.5-14.5)
[2018-07-11 08:50] VITALS: BP 158/88
[2018-07-11 10:29] VITALS: BP 158/88
[2018-07-11 17:30] VITALS: BP 148/86
[2018-07-11 21:11] VITALS: BP 150/81
[2018-07-12 05:38] VITALS: BP 156/81
[2018-07-12 09:28] VITALS: BP 170/102
[2018-07-12 11:46] VITALS: BP 165/88
[2018-07-12] MEDS ORDERED: ULTRAM50 MG PO (12:21)
[2018-07-12] MEDS ORDERED: BACTRIM DS1 TAB PO (12:21)
[2018-07-12 12:34] VITALS: BP 165/88
== END 2018-07-12 13:40 | disposition home or self-care (01) | DRG 383 ==
LOC: ED 01:47 → MU 03:08
PROVIDERS: Emergency Medicine; Family Medicine
PROC: 0J9 Subcutaneous Tissue and Fascia, Drainage (ICD-10-PCS; principal; 2018-07-08)
PROC: 0J9H3ZZ Drainage of Left Lower Arm Subcutaneous Tissue and Fascia, Percutaneous Approach (ICD-10-PCS; 2018-07-09)
DX: L02.414 Cutaneous abscess of left upper limb (principal); E43 Unspecified severe protein-calorie malnutrition; K85.90 Acute pancreatitis without necrosis or infection, unspecified; E11.65 Type 2 diabetes mellitus with hyperglycemia; E87.1 Hypo-osmolality and hyponatremia; D68.69 Other thrombophilia; I16.0 Hypertensive urgency; Z79.4 Long term (current) use of insulin; Z68.43 Body mass index [BMI] 50.0-59.9, adult; Z91.19 Patient's noncompliance with other medical treatment and regimen
CPT/HCPCS: 82962; 83880; 84439; 94150; C1729; J0690; J1815; J1885; J2001; J2060; J2270; J2543; J3490; J7030; Q0092

== ENCOUNTER 2019-05-17 07:37 | Inpatient (IN) | payer MEDICAID ==
[~2019-05-17] VITALS: Ht 180.3 cm; Wt 152.0 kg
[2019-05-17 07:37] VITALS: Ht 180.3 cm; Wt 152.0 kg
[~2019-05-17 07:37] MED LIST changes: +BACTRIM DS1 TAB PO; +HUMALOG100 U/ML SC; +LANTUS SOLOS100 U/M1 SQ; +LISINOPRIL40 MG PO; +METOPROLOL TART25 M1 PO; +ULTRAM50 MG PO
--- NOTE | 2019-05-17 08:53 | NUR ---
PT MEDICATED PER MD ORDERS. PT VERBALIZES UNDERSTANDING. SEE EMAR FOR DETAILS.
--- NOTE | 2019-05-17 09:31 | NUR ---
PT RESTING IN POSITION OF COMFORT. NO ACUTE DISTRESS NOTED AEB, PT CALM AND COOPERATIVE, PT STATES "I'M FINE"
--- NOTE | 2019-05-17 10:50 | NUR ---
WHILE IN CT. PT'S IV WAS DISLODGED. NEW IV ESTABLISHED. PT TOLERATED PROCEDURE. WELL.
[2019-05-17 10:59] LABS: PLATELET COUNT 340 x10^3mcL (130-400)
[2019-05-17 11:09] LABS: RED CELL DISTRIBUTION WIDTH 15.9 % (11.5-14.5)
[2019-05-17 11:10] LABS: CALCIUM 9.5 mg/dL (8.5-10.1); CHLORIDE SERUM 94 mmol/L (98-107); CREATININE SERUM 0.7 mg/dL (0.7-1.3); GFR1 > 60 mL/min; GLUCOSE SERUM 266 mg/dL (74-106); SODIUM SERUM 130 mmol/L (136-145)
[2019-05-17 11:15] LABS: ALBUMIN 1.8 g/dL (3.4-5.0); ALKALINE PHOSPHATASE 199 U/L (46-116); ALT/SGPT 38 U/L (16-63); AST/SGOT 15 U/L (15-37); BILIRUBIN TOTAL 0.79 mg/dL (0.20-1.00); TOTAL PROTEIN, SERUM 7.5 g/dL (6.4-8.2)
--- NOTE | 2019-05-17 11:17 | NUR ---
PER DR. BARNARD START A JUAREZ CATH, FOR PT C/O INABILITY TO VOID.
[2019-05-17 12:03] LABS: BAND NEUTROPHIL 10 % (0-10); BASOPHIL 0 % (0-2); MONOCYTE 3 % (0-7); SEGMENTED NEUTROPHILS 77 % (37-75)
[2019-05-17 12:04] LABS: PLATELET MORPHOLOGY PLATELETS NORMAL; rbc morphology (normal/abnorm) ABNORMAL (NORMAL)
[2019-05-17 12:41] LABS: MAGNESIUM 1.7 mg/dL (1.8-2.4); PHOSPHOROUS 3.8 mg/dL (2.5-4.9)
[2019-05-17 12:45] LABS: CHOLESTEROL/HDL RATIO 6.2
[2019-05-17] MEDS ORDERED: LISINOPRIL2.5 MG (12:58)
[2019-05-17] MEDS ORDERED: HUMI (12:58)
[2019-05-17] MEDS ORDERED: LANTUS SOLOS100 U/M1 (12:58)
[2019-05-17] MEDS ORDERED: DILAUDID2 MG (12:58)
--- NOTE | 2019-05-17 13:03 | NUR ---
HAND-OFF REPORT TO DRAGAN MANUEL FROM MED/SURG TO ASSUME CARE FOR PT.
[2019-05-17 13:11] LABS: microscopic required? YES; urine erythrocyte 2+ (NEGATIVE)
--- NOTE | 2019-05-17 13:13 | NUR ---
RECEIVED PT FROM ED VIA [employer]S, CAME IN DUE TO BACK PAIN THAT STARTED ON TUESDAY AND STATED THAT HE CAN'T FEEL FROM HIP DOWN TO BLE STARTING YESTERDAY. PT IS AAOX4. DENIES HEADACHE/DIZZINESS. SPEECH IS CLEAR. NO FACIAL DROOP. NO SOB NOTED, LUNG SOUNDS CTA. DENIES CHEST PAIN/PRESSURE. W/ TRACE EDEMA ON BLE. BLE ARE COOL TO TOUCH. NO SENSATION NOTED ON BLE BUT HAS SENSATION ON THE FEET W/ DEEP PRESSURE. PT UNABLE TO MOVE LEGS. STATED THAT HE DOES NOT HAVE THE URGE TO URINATE AND CAN'T FEEL THAT HIS BLADDER IS FULL, BUT ABLE TO FEEL SOME PAIN ON HIS BLADDER. W/ FERNCH 16 JUAREZ CATHETER DRAINING W/ JULIUS COLORED URINE. LAST BM WAS 2 DAYS AGO, STATED THAT HE HAD TO PUSH TO GO BM. C/O 10/10 PAIN FROM THE BACK TO BLE DESCRIBED STABBING, SHOOTING, RIPPING AND VIBRATIONS. IV SITE PATENT AND INTACT. SIDE RAILS UPX2. CALL LIGHT ON REACH. PRIMARY NURSE MAR AT BEDSIDE FOR CONTINUITY OF CARE
[2019-05-17 13:29] VITALS: BP 154/107
--- NOTE | 2019-05-17 13:40 | NUR ---
PT REPORTED BACK PAIN RADIATING TO BOTH LEGS RATED 8/10. MEDICATED ORDERED, ASSISTED TO COMFORTABLE POSITION IN BED. WILL CONTINUE TO MONITOR.
[2019-05-17 14:12] LABS: AMPHETAMINE QUAL UR NONE DETECTED (See below)
--- NOTE | 2019-05-17 19:25 | NUR ---
RECEIVED PT FROM PREVIOUS SHIFT NURSE. PT AOX4. DENIES OLIVAREZ/DIZZINESS. MED SURG PT. DENIES CP/PRESSURE. DENIES SOB/DIFFICULTY BREATHING, ON RA. IV TO R. HAND, INTACT AND PATENT. BED IN LOWEST POSITION. CALL LIGHT WITHIN REACH. WILL CONTINUE TO MONITOR.
[2019-05-17 19:53] VITALS: BP 194/96
--- NOTE | 2019-05-18 00:21 | NUR ---
PER PT, HE IS COUGHING UP BLOOD OCCASIONALLY. SAMPLE CUP SUPPLIED. DR. ASCENCIO NOTIFIED.
[2019-05-18 00:31] VITALS: BP 176/102
--- NOTE | 2019-05-18 01:20 | NUR ---
PT BP 176/92, DR. ASCENCIO NOTIFIED. PT PLACED ON TELE #18 READING NSR. MEDICATED PER EMAR WITH LOPRESSOR 2.5MG SLOW IVP. WILL CONTINUE TO MONITOR.
[2019-05-18 01:48] VITALS: BP 141/96
--- NOTE | 2019-05-18 01:48 | NUR ---
BP IS NOW 141/96 MAP 111, HR 94.
[2019-05-18 04:15] VITALS: BP 154/88
--- NOTE | 2019-05-18 06:43 | NUR ---
PT CONSTANTLY REQUESTING PAIN MEDICATION THROUGHOUT NIGHT, SLEPT THROUGHOUT NIGHT BUT DID C/O TIMES WHEN PAIN FELT "UNBEARABLE
[2019-05-18 07:10] LABS: BASOPHIL % 0.1 % (0-2); PLATELET COUNT 366 x10^3mcL (130-400)
[2019-05-18 07:13] LABS: RED CELL DISTRIBUTION WIDTH 16.1 % (11.5-14.5)
--- NOTE | 2019-05-18 07:15 | NUR ---
RECIEVED PT IN BED RESTING. A/O X4 NO OLIVAREZ OR DIZZINESS. LUNGS CTA, ON RA, NO SOB NOTED. JUAREZ CATHETER IN PLACE AND DRAINING DARK YELLOW URINE. DENIES ANY PAIN OR BURNING WITH JUAREZ. PT C/O 9/10 GENERALIZED PAIN AT THIS TIME, WILL MEDICATE PER EMAR. NS 100/HR RUNNING IN RIGHT HAND WITH NO REDNESS OR INFLAMMATION NOTED. SAFETY PRECAUTIONS IN PLACE, CALL LIGHT WITHIN REACH, WILLL MONITOR.
[2019-05-18 07:50] LABS: CALCIUM 8.6 mg/dL (8.5-10.1); CARBON DIOXIDE 26.3 mmol/L (21-32); CHLORIDE SERUM 93 mmol/L (98-107); CREATININE SERUM 0.7 mg/dL (0.7-1.3); GFR1 > 60 mL/min; GLUCOSE SERUM 210 mg/dL (74-106); POTASSIUM SERUM 3.7 mmol/L (3.5-5.1); SODIUM SERUM 129 mmol/L (136-145)
--- NOTE | 2019-05-18 08:12 | NUR ---
PT C/O 07/07 GEN PAIN. MEDICATED WITH MORPHINE PER EMAR, WILL REASSESS.
[2019-05-18 09:06] VITALS: BP 148/85
--- NOTE | 2019-05-18 10:09 | NUR ---
Discount pharmacy card and list to low cost medical clinics given to patient by Lisa Peng.
--- NOTE | 2019-05-18 11:00 | NUR ---
PT REPORTS PAIN DOWN TO 4/10. NO DISTRESS OR SOB NOTED. WILL CONTINUE TO MONIOTR. CALL LIGHT WITHIN REACH
--- NOTE | 2019-05-18 14:00 | NUR ---
PT STABLE AT THIS TIME. PAIN MANAGEMENT CONTINUED. NO C/O DISTRESS OR SOB AT THIS TIME. SAFETY PRECAUTIONS IN PLACE, CALL LIGHT WITHIN REACH, WILL CONTINUE TO MONITOR.
--- NOTE | 2019-05-18 17:00 | NUR ---
PT RESTING COMFORTABLY IN BED. REPORTS THAT PAIN IS BEING MANAGED WELL. NOP DISTRESS OR SOB NOTED. SAFETY PRECAUTIONS IN PLACE CALL LIGHT WITHIN REACH, WILL MONITOR.
[2019-05-18 18:09] VITALS: BP 148/91
--- NOTE | 2019-05-18 19:30 | NUR ---
PT IS A/O x4. ON MEDSURG. DENIES ANY CHEST PAIN OR PRESSURE. PULSES ARE PRESENT. TRACE EDEMA NOTED ON BLE. PER PT HE HAS NO SENSATION HIP DOWN. UNABLE TO MOVE BLE EXTREMITIES. WITHDRAWL FROM PAIN. LUNGS CLEAR IN ALL FEILDS. ON RA, DENIES ANY SOB. EQUAL CHEST RISE AND FALL. NO SIGN OF RESP DISTRESS. BOWEL SOUNDS PRESENT. JUAREZ BAG BELOW THE BLADDER. NO DEPENDENT LOOP OR KINK NOTED. YELLOW URINE NOTED. SKIN INTACT. DENIES PAIN AT THIS TIME. IV ON R HAND INTACT AND PATENT. NO SIGN OF INFILTRATION NOTED. FRIEND AT BEDSIDE. BED IS AT LOWEST SETTING. CALL LIGHT WITHIN REACH. WILL CONTINUE TO MONTIOR.
--- NOTE | 2019-05-18 19:57 | NUR ---
PT STABLE AT THIS TIME AND REPORTS PAIN IS UNDER CONTROL AT THIS TIME AND APPEARS IN GOOD SPIRITS. NO DISTRESS, SOB, OF CP REPORTED. FAMILY AT BEDSIDE AT THIS TIME. IV INTACT AND PATENT WITH NO REDNESS OR INFLAMMATION. JUAREZ CATHETER IN PM=LACE AND DRAINING DARK YELLOW URINE. DENIES BURNING OR PAIN. VA WNL. SAFETY PRECAUTIONS IN PLACE, CALL LIGHT WITHIN REACH, ENDOREDSED CARE TO NIGHT NURSE.
[2019-05-18 20:24] VITALS: BP 159/97
--- NOTE | 2019-05-18 23:31 | NUR ---
PT C/O SOB. PT SPO2 97%, ON RA. PLACED ON 2L NC FOR COMFORT. B/P WAS 172/100, HR 78. MD Ricks WAS NOTIFIED AND WILL INPUT ORDERS. WILL CARRY OUT ORDERS.
[2019-05-19 00:34] VITALS: BP 156/98
--- NOTE | 2019-05-19 00:36 | NUR ---
B/P AFTER ONE TIME DOSE CATAPRES IS 156/98 (117). B/P IS TRENDING DOWN. WILL CONTINUE TO MONTIOR.
--- NOTE | 2019-05-19 01:36 | NUR ---
PT IS RESTING IN BED WITH BOTH EYES CLOSED. BREATHING EVEN AND UNLABORED. NO SIGN OF DISTRESS NOTED. BED IS AT LOWEST SETTING. CALL LIGHT WITHIN REACH. WILL CONTINUE TO MONITOR.
[2019-05-19 06:43] VITALS: BP 161/99
--- NOTE | 2019-05-19 06:55 | NUR ---
PT IS RESTING IN BED. DENIES PAIN AT THIS TIME, BUT DOES MENTION HE IS TWITCHING ON BLE AND HAS MORE SENSATION. B/P IS 165/67, MD JACOME WAS NOTIFIED AND WILL COMMUNICATE TO MORNING MD, CHARGE NURSE WAS PRESENT. CONSENT WAS SIGN FOR [facility]. NO OTHER COMPLAINTS. NO ACUTE EVENT OCCURED AT NIGHT. BED IS AT LOWEST SETTING. WILL ENDORSE TO AM NURSE.
[2019-05-19 06:56] LABS: CALCIUM 8.5 mg/dL (8.5-10.1); CARBON DIOXIDE 20.3 mmol/L (21-32); CHLORIDE SERUM 93 mmol/L (98-107); CREATININE SERUM 0.7 mg/dL (0.7-1.3); GFR1 > 60 mL/min; GLUCOSE SERUM 291 mg/dL (74-106); POTASSIUM SERUM 4.3 mmol/L (3.5-5.1); SODIUM SERUM 126 mmol/L (136-145)
--- NOTE | 2019-05-19 07:10 | NUR ---
RECEIVED BEDSIDE REPORT FROM CHILD DAY CARE TEACHER NURSE. PATIENT IS STABLE ON 2L NC. PATIENT DENIES SOB, NO APPARENT SIGNS OF RESPIRATORY DISTRESS. PATIENT IS ALERT AND ORIENTED. IV TO RIGHT HAND IS INFUSING WELL. NO EDEMA OR ERYTHEMA NOTED. CALL LIGHT WITH IN REACH, QUESTIONS AND CONCERNS ADDRESSED, SAFETY PRECAUTIONS IN PLACE.
[2019-05-19 09:26] VITALS: BP 156/92
[2019-05-19 09:33] LABS: PLATELET COUNT 363 x10^3mcL (130-400)
--- NOTE | 2019-05-19 09:38 | NUR ---
ADMINISTERED MEDICATION PER EMAR. PATIENT EDUCATED ON NEED FOR MEDICATION WELL ADVERSE EFFECTS TO REPORT. PATIENT TOLORATED WELL. VERBALIZED UNDERSTANDING. QUESTIONS AND CONCERNS ADDRESSED. PATIENT DENIES OTHER NEEDS AT THIS TIME. SAFETY PRECAUTIONS IN PLACE.
[2019-05-19 09:41] LABS: RED CELL DISTRIBUTION WIDTH 15.7 % (11.5-14.5)
[2019-05-19 11:06] LABS: BAND NEUTROPHIL 8 % (0-10); BASOPHIL 0 % (0-2); MONOCYTE 3 % (0-7); SEGMENTED NEUTROPHILS 82 % (37-75)
[2019-05-19 11:07] LABS: PLATELET MORPHOLOGY PLATELETS NORMAL; rbc morphology (normal/abnorm) ABNORMAL (NORMAL)
--- NOTE | 2019-05-19 11:23 | NUR ---
ADMINISTERED MEDICATION PER EMAR. PATIENT EDUCATED ON NEED FOR MEDICATION WELL ADVERSE EFFECTS TO REPORT. PATIENT TOLORATED WELL. VERBALIZED UNDERSTANDING. QUESTIONS AND CONCERNS ADDRESSED. PATIENT DENIES OTHER NEEDS AT THIS TIME. SAFETY PRECAUTIONS IN PLACE. PATIENT IS STABLE RESTING COMFORTABLY IN BED. NO APPARENT SIGNS OF SOB, OR RESPIRATORY DISTRESS.
--- NOTE | 2019-05-19 13:22 | NUR ---
PATIENT C/O ABD PAIN, N/V. STATED THAT IT FELT LIKE SOMETHING WAS HARD IN HIS STOMACH. ADMINISTERED MEDICATION PER EMAR. PATIENT EDUCATED ON NEED FOR MEDICATION WELL ADVERSE EFFECTS TO REPORT. PATIENT TOLORATED WELL. VERBALIZED UNDERSTANDING. MADE MD AWARE OF THE COMPLAINTS. QUESTIONS AND CONCERNS ADDRESSED. PATIENT DENIES OTHER NEEDS AT THIS TIME. SAFETY PRECAUTIONS IN PLACE.
[2019-05-19 13:26] LABS: CALCIUM 8.8 mg/dL (8.5-10.1); CARBON DIOXIDE 21.7 mmol/L (21-32); CHLORIDE SERUM 95 mmol/L (98-107); CREATININE SERUM 0.8 mg/dL (0.7-1.3); GFR1 > 60 mL/min; GLUCOSE SERUM 308 mg/dL (74-106); POTASSIUM SERUM 4.4 mmol/L (3.5-5.1); SODIUM SERUM 128 mmol/L (136-145)
--- NOTE | 2019-05-19 15:12 | NUR ---
XRAY HERE TO DO KUB ORDERED BY DR BUCK. PATIENT EXCEEDS WEIGHT LIMIT FOR PORTABLE MACHINE. PER AIR BRAKE WORKER PATIENT WILL NEED TO BE TAKEN DOWN STAIRS TO X RAY DEPARTEMNT FOR IMAGING STUDY. PATIENT IS COMPLAING OF SEVERE BACK PAIN. MEDICATIONS ADMINISTERED PER EMAR. PATIENT EDUCATED ON NEED FOR MEDICATION WELL ADVERSE EFFECTS TO REPORT. PATIENT TOLORATED WELL. VERBALIZED UNDERSTANDING. QUESTIONS AND CONCERNS ADDRESSED. PATIENT DENIES OTHER NEEDS AT THIS TIME. SAFETY PRECAUTIONS IN PLACE.
--- NOTE | 2019-05-19 15:40 | NUR ---
PATIENT BACK FROM XRAY. PATIENT IS STABLE NO APPARETN SIGNS OF PAIN, SOB, OR RESPIRATORY DISTRESS. PATIENT DENIES OTHER NEEDS AT THIS TIME. SAFETY PRECAUTIONS IN PLACE.
--- NOTE | 2019-05-19 16:56 | NUR ---
ADMINISTERED GLCOSE CHECK PER HARSHAL. PATIENT EDUCATED ON NEED FOR MEDICATION WELL ADVERSE EFFECTS TO REPORT. PATIENT TOLORATED WELL. VERBALIZED UNDERSTANDING. QUESTIONS AND CONCERNS ADDRESSED. PATIENT DENIES OTHER NEEDS AT THIS TIME. SAFETY PRECAUTIONS IN PLACE.
[2019-05-19 17:47] VITALS: BP 173/91
--- NOTE | 2019-05-19 18:06 | NUR ---
PATIENT MOVED FROM 235A TO 257A.
--- NOTE | 2019-05-19 18:29 | NUR ---
PATIENT HAS A BP OF 173/91. CALLED DR BUCK. [facility]. WAITING FOR MD TO CALL BACK. PATIENT IS STABLE, PATIENT DENIES SOB. NO APPARENT SIGNS OF RESPIRATORY DISTRESS. WAITING FOR MD TO CALL BACK.
--- NOTE | 2019-05-19 18:46 | NUR ---
PATIENT IS STABLE, HAS CONSTANT L/S PAIN. ON 2L NC. JUAREZ CATH IN PLACE. IV TO RIGHT HAND INFUSING WELL. NO EDEMA OR ERYTHEMA NOTED AT SITE. FAMILY AT BEDSIDE. PATIENT IS A/O X4 ABLE TO MAKE NEEDS KNOWN. PATIENT IS UNABLE TO MOVE BLE. CALL LIGHT WITHIN REACH. BED IN LOW POSITION, BED RAILS UP X2. QUESTIONS AND CONCERNS ADDRESSED. SAFETY PRECAUTIONS IN PLACE. WILL ENDORSE CARE TO CASER UP NURSE.
--- NOTE | 2019-05-19 19:19 | NUR ---
ENDORSED CARE TO PATIENT FINANCIAL REPRESENTATIVE NURSE ERICKA.
--- NOTE | 2019-05-19 19:30 | NUR ---
PT IS A/O x4. ON MED SURG. DENIES ANY CHEST PAIN OR PRESSURE. PULSES ARE PRESENT. TRACE EDEMA ON BLE. LUNGS CLEAR IN ALL FEILDS, BUT DIMINISHED AT BASES. ON 2L NC, DENIES ANY SOB. EQUAL CHEST RISE AND FALL. BOWEL SOUNDS ACTIVE x4. JUAREZ BAG BELOW THE BLADDER. NO DEPENDENT LOOP. YELLOW URINE NOTED. PT UNABLE TO MOVE BLE, DENIES SENSATION. SKIN INTACT. IV ON RH INTACT AND PATENT. FAMILY AT BEDSIDE. LAB AT BEDSIDE FOR 1800 LAB DRAW, UNABLE TO OBTAIN LABS DRAW. THEY WILL CONITUE TO ATTEMPT. BED IS AT LOWEST SETTING. CALL LIGHT WITHIN REACH. WILL CONTINUE TO MONITOR.
[2019-05-19 21:13] VITALS: BP 154/85
--- NOTE | 2019-05-19 22:06 | NUR ---
PT IS RESFUSING ANY MORE LAB DRAWS, STATING THEY HAVE TRIED ALL DAY AND HE JUST WANTS REST. MD ARNOLD WAS NOTIFIED.
--- NOTE | 2019-05-20 01:42 | NUR ---
SPOKE WITH [facility] AND ASKED ABOUT THE 0200 VANCO DOSE. EXPLAINED ABOUT HOW THE VANCO THROUGH WAS NOT ABLE TO BE OBATINED AND PT IS REFUSING LABS. PER PHARMACY IT IS OK TO CONTINUE TO GIVE WITHOUT VANCO TROUGH. MD ARNOLD WAS ALSO ASKED IF VANCO TROUGH NOT AVILABLE DID SHE WANT TO CONTINUE WITH MEDICATION. PER MD, SHE WANTS MEDICATION STILL ADMINISTERED WITHOUT TROUGH. CHARGE NURSE IS MADE AWARE. MEDICATION WILL BE HUNG PER EMAR.
[2019-05-20 05:57] VITALS: BP 131/77
--- NOTE | 2019-05-20 06:41 | NUR ---
PT IS RESTING IN BED WITH BOTH EYES CLOSED. NO DISTRESS NOTED. UPDATED MD BENITEZ ABOUT PT BLOOD SUGAR 277 AND NOT BEING COVERED D/T PT BEING NPO FOR FOLLOW THROUGH TODAY. ALSO UPDATED MD ON YESTERDAY LABS ARE STILL NOT DRAWN AND VANCO TROUGH NOT COMPLETED. PT AGREED TO ATTEMPT LAB DRAW AGAIN THIS AM. BED IS AT LOWEST SETTING CALL LIGHT WITHIN REACH. WILL ENDORSE TO AM NURSE.
--- NOTE | 2019-05-20 07:19 | NUR ---
RECEIVED PT FROM SHIFT NURSE ASLEEP BUT AROUSABLE. NO ACUTE DISTRESS NOTED. RESP EVEN AND UNLABORED ON 2L NC. JUAREZ CATH IN PLACE DRAINING JULIUS COLORED URINE. IV INTACT AND PATENT. BED IN LOW POSITION. CALL LIGHT WITHIN REACH. WILL CONTINUE TO MONITOR.
[2019-05-20 07:28] LABS: PLATELET COUNT 324 x10^3mcL (130-400)
[2019-05-20 07:31] LABS: RED CELL DISTRIBUTION WIDTH 15.9 % (11.5-14.5)
--- NOTE | 2019-05-20 07:45 | NUR ---
RECEIVED CALL FROM LAB WBC 21.3. PAGED DR. THOMPSON AWAITING FURTHER ORDERS.
[2019-05-20 07:49] LABS: CALCIUM 8.6 mg/dL (8.5-10.1); CHLORIDE SERUM 95 mmol/L (98-107); CREATININE SERUM 0.8 mg/dL (0.7-1.3); GFR1 > 60 mL/min; GLUCOSE SERUM 292 mg/dL (74-106); POTASSIUM SERUM 4.8 mmol/L (3.5-5.1); SODIUM SERUM 127 mmol/L (136-145)
--- NOTE | 2019-05-20 08:40 | NUR ---
PT C/O NAUSEA. GAVE ZOFRAN ORDERED. WILL CONTINUE TO MONITOR.
--- NOTE | 2019-05-20 08:41 | NUR ---
PT C/O OF NAUSEA. GAVE ZOFRAN ORDERED. WILL CONTINUE TO MONITIOR.
--- NOTE | 2019-05-20 09:00 | NUR ---
PT NONCOMPLIANT WITH SMALL BOWEL FOLLOW THROUG. PT UNABLE TO REPOSITION DUE TO BACK PAIN.
[2019-05-20 09:47] VITALS: BP 132/84
--- NOTE | 2019-05-20 10:35 | NUR ---
PT ASLEEP BUT AROUSABLE. NO ACUTE DISTRESS NOTED. IV INTACT AND PATENT. BED IN LOW POSITION. CALL LIGHT WITHIN REACH. WILL CONTINUE TO MONITOR.
[2019-05-20 11:09] LABS: BAND NEUTROPHIL 6 % (0-10); BASOPHIL 0 % (0-2); MONOCYTE 5 % (0-7); PLATELET MORPHOLOGY PLATELETS NORMAL; SEGMENTED NEUTROPHILS 83 % (37-75); rbc morphology (normal/abnorm) ABNORMAL (NORMAL)
--- NOTE | 2019-05-20 12:39 | NUR ---
PT SITTING UP IN BED RESTING. NO C/O OF BACK PAIN AT THIS TIME. IV INTACT AND PATENT. CALL LIGHT WITHIN REACH WILL CONTINUE TO MONITOR.
--- NOTE | 2019-05-20 14:40 | NUR ---
PT AWAKE WATCHING TV. NO ACUTE DISTRESS NOTED. CALL LIGHT WITHIN REACH. WILL CONTINUE TO MONITOR.
--- NOTE | 2019-05-20 17:25 | NUR ---
INFORMED PHARMACIST OF ELIASO TROUGH 11.7. ADVISED TO KEEP SAME DOSAGE
[2019-05-20 17:34] VITALS: BP 144/76
--- NOTE | 2019-05-20 18:20 | NUR ---
PT LEFT FOR PROCEDURE
--- NOTE | 2019-05-20 18:45 | NUR ---
PT BACK FROM PROCEDRE.
--- NOTE | 2019-05-20 18:49 | NUR ---
PT C/O OF BACK PAIN. GAVE DILAUDID.
--- NOTE | 2019-05-20 18:57 | NUR ---
PT RESTING IN BED. DENIES ANY BACK PAIN. RESP EVEN AND UNLABORED ON 2L NC. DENIES SOB. IV INTACT AND PATENT. JUAREZ CATH IN PLACE DRAINING YELLOW URINE. BED IN LOW POSITION. CALL LIGHT WITHIN REACH. WILL BE ENDORSED.
--- NOTE | 2019-05-20 20:00 | NUR ---
PT A/A/O X4. DENIES DIZZINESS AND HEADACHE. BREATH SOUNDS CLEAR. BREATHING EVEN AND UNLABORED ON 2L NC. DENIES CHEST PAIN AND PRESSURE. DENIES BACK PAIN THUS FAR. BOWEL SOUNDS ACTIVE. NO C/O N/V AND ABD PAIN. TRACE EDEMA NOTED ON BLE. JUAREZ CATH IN PLACE AND DRAINING TO GRAVITY WITH YELLOW URINE. IV SALINE LOCK INTACT ON THE RIGHT WRIST AND RIGHT FOREARM. MADE PT COMFORTABLE. PLACED CALL LIGHT WITH IN REACH. WILL CONTINUE TO MONITOR.
[2019-05-20 20:36] VITALS: BP 153/92
--- NOTE | 2019-05-20 22:33 | NUR ---
PT C/O NAUSEA. GAVE PT ZOFRAN IVP. PT TOLERARED IT WELL. WILL CONTINUE TO MONITOR.
--- NOTE | 2019-05-21 00:47 | NUR ---
PT RESTING WITH EYES CLOSED. NO DISTRESS AND DISCOMFORT NOTED. WILL CONTINUE TO MONITOR.
[2019-05-21 05:40] VITALS: BP 163/101
--- NOTE | 2019-05-21 06:36 | NUR ---
PT RESTING WITH EYES CLOSED. EASILY AROUSABLE WITH VERBAL STIMULI. NO C/O PAIN THUS FAR. IV INTACT. MADE PT COMFORTABLE. WILL ENDORSE TO THE AM NURSE ACCORDINGLY.
--- NOTE | 2019-05-21 07:30 | NUR ---
RECEIVED PT FROM YU RN. PT AA/OX4. FOLLOWS COMPLEX COMMANDS, RESPONDS TO VERBAL STIMULI. REPORTS NUMBNESS/NO SENSATION TO BLE EXTENDING TO LOWER ABDOMEN. PHYSICIANS AWARE. STRENGTH EQUAL/STRONG BUE. PT REFUSES TO REPOSITION AT THIS TIME WITH ASSISTANCE. DISCUSSED WITH PT PURPOSE OF REPOSITIONING INCLUDING PREVENTION OF ULCERATION. PT VERBALIZED UNDERSTANDING, CONTINUES TO REFUSE TO REPOSITION. WILL NOTIFY PHYSICIAN. DENIES PAIN AT THIS TIME. NO SOB ON 2LNC. NO CHEST PAIN. IVS WNL TO RW/RFA, NO REDNESS, NO SWELLING, NO INFILTRATION. PATENT AND FLUSH WELL. PT CALM AT THIS TIME. JUAREZ IN TACT DRAINING CLEAR/YELLOW URINE. BED IN LOW POSITION. CALL LIGHT WITHIN REACH. SIDE RAILS UP X2. WILL CONTINUE TO MONITOR.
[2019-05-21 11:18] LABS: CALCIUM 9.2 mg/dL (8.5-10.1); CARBON DIOXIDE 21.6 mmol/L (21-32); CHLORIDE SERUM 94 mmol/L (98-107); CREATININE SERUM 0.8 mg/dL (0.7-1.3); GFR1 > 60 mL/min; GLUCOSE SERUM 321 mg/dL (74-106); MAGNESIUM 2.3 mg/dL (1.8-2.4); PHOSPHOROUS 3.9 mg/dL (2.5-4.9); POTASSIUM SERUM 4.9 mmol/L (3.5-5.1); SODIUM SERUM 126 mmol/L (136-145)
[2019-05-21 12:21] LABS: BASOPHIL % 0.1 % (0-2); PLATELET COUNT 328 x10^3mcL (130-400)
--- NOTE | 2019-05-21 12:25 | NUR ---
PT LAYING IN BED WITH HOB ELEVATED, DENIES PAIN AT THIS TIME. DENIES SOB ON 2LNC. DENIES CHEST PAIN. CALM. SPEECH CLEAR. FOLLOS COMPLEX COMMANDS, AA/OX4. REFUSES TO TURN. IVS WNL TO RW/RFA. SALINE LOCKED. BED IN LOW POSITION. CALL LIGHT WITHIN REACH. WILL CONTINUE TO MONITOR.
[2019-05-21 12:28] LABS: RED CELL DISTRIBUTION WIDTH 15.7 % (11.5-14.5)
--- NOTE | 2019-05-21 15:38 | NUR ---
SCREEN FOR LOW KAITLYNN SCALE AT RISK,POC DISCUSSED WITH SOIL FERTILITY SPECIALIST AND PRIMARY RN, BARIATRIC BED ORDERED FOR COMFORT/PAIN MANAGEMENT/SKIN CARE PRESSURE ULCER INJURY PREVENTION INTERVENTIONS IN PLACE AND ENCOURAGE PT. TO COMPLIANCE WITH POC. -TURN AND REPOSITION PATIENT Q 2H OFFLOAD LEFT AND RIGHT HIPS -ASSESS AND MONITOR SKIN CONDITION DURING POSITION CHANGE -OFFLOAD BILATERAL HEELS BY PLACING PILLOWS UNDER CALVES AT ALL TIMES, UNLESS OTHERWISE CONTRAINDICATED -PRESSURE REDISTRIBUTION SURFACE THERAPY -KEEP SKIN CLEAN AND DRY AT ALL TIMES.
[2019-05-21 17:56] VITALS: BP 134/92
--- NOTE | 2019-05-21 18:21 | NUR ---
PT REFUSED BARIATRIC AIR MATTRESS BED, STATES, "THE AIR MATTRESS MAKES MY BACK HURT", PT INSISTS TO USE STRIKER BED, REPORTS HE FEELS MORE COMFORTABLE REMAINING IN CURRENT BED.
--- NOTE | 2019-05-21 18:52 | NUR ---
PT LAYING IN BED. AA/OX4. FOLLOWS COMPLEX COMMANDS, RESPONDS TO VERBAL STIMULI, FACE SYMMETRICAL, SPEECH CLEAR. NO OLIVAREZ. NO DIZZINESS. NO SOB ON 2LNC. NO CHEST PAIN. STRENGTH EQUAL BUE, CONTINUES TO REPORT INABILITY TO MOVE BLE. REPORTS NUMBNESS/DECREASED SENSATION ORIGINATING FROM LOWER ABDOMEN RADIATING TO BLE. COMPLAINT OF GENERALIZED TWITCHING/SPASMS BUE/BLE. NO N/V. NO FEVER, NO CHILLS. SIDE RAILS UP X2. PT CONTINUES TO REFUSE TO TURN. IVS WNL, SALINE LOCKED. BED IN LOW POSITION. CALL LIGHT WITHIN REACH. WILL ENDORSE TO ONCOMING SHIFT.
--- NOTE | 2019-05-21 20:00 | NUR ---
AWAKE AND ALERT, ORIENTED TO NAME, PLACE, TIME AND SITUATION. SPEECH CLEAR AND APPROPRIATE. BREATHING EVEN AND UNLABORED ON ROOM AIR. OBESE. STATED UNABLE TO VOLUNTARY MOVE LOWER EXTREMITIES. STATED UNABLE TO FEEL LOWER EXTREMITIES WHEN TOUCHED. STATED HAS INVOLUNTARY TWITCHING. PERIPHERAL PULSES PALPABLE. ENCOURAGED TO TURN AND REPOSITION, BE PLACED ON AIR MATTRESS BED. PT REFUSED TO BE TURNED OR PLACED ON AIR MATTRESS BED. UNABLE TO ASSESS BACK.
[2019-05-21 20:44] VITALS: BP 156/91
--- NOTE | 2019-05-21 22:51 | NUR ---
DAHE OF TELE NEURO CALLED, STATED NEED FF. INFORMATION SENT, H&P, MED LIST, RECENT LABS AND VITALS, RADIOLOGY REPORTS (PARTICULARLY LAST 24 HRS), ED NOTES, AND OTHER PROGRESS NOTES. TO BE FAXED TO [phone]. TEL NUMBER TO CONFIRM RECEIPT OF INFO IS [phone]. INFORMED [facility].
--- NOTE | 2019-05-21 23:32 | NUR ---
PT CRYING IN PAIN, GRIMACING. DILAUDID 1MG ADMINISTERED SLOW IVP FOR PAIN.
--- NOTE | 2019-05-21 23:42 | NUR ---
PT STATED THE [facility] SCREEN WAS BOTHERING HIM. TURNED SCREEN AROUND TOWARDS WALL. PT STATED IT WAS BETTER.
--- NOTE | 2019-05-21 23:47 | NUR ---
NEEDED INFORMATION BY TELE NEURO WAS FAXED BY [facility]. CONFIRMED WITH WILL OF [facility] THAT THEY HAVE RECEIVED THE FAXED INFORMATION.
--- NOTE | 2019-05-22 01:12 | NUR ---
EYES CLOSED, BREATHING EVEN AND UNLABORED ON ROOM AIR. CALL LIGHT WITHIN EASY REACH. NO MOANING OR GRIMACING NOTED.
--- NOTE | 2019-05-22 05:21 | NUR ---
JUAREZ CATHETER CARE DONE.
[2019-05-22 05:31] VITALS: BP 149/92
--- NOTE | 2019-05-22 06:36 | NUR ---
TELE NEURO DR. MORTON ON TELE NEURO. DR. ORDONEZ CAME INTO ROOM AND TALKING TO DR. MORTON
--- NOTE | 2019-05-22 07:07 | NUR ---
AWAKE AND ALERT, BREATHING EVEN AND UNLABORED. STATED PAIN HAS GONE DOWN. ENDORSED TO NURSE PREET
[2019-05-22 07:28] LABS: PLATELET COUNT 295 x10^3mcL (130-400)
[2019-05-22 07:29] LABS: CALCIUM 8.5 mg/dL (8.5-10.1); CARBON DIOXIDE 28.3 mmol/L (21-32); CHLORIDE SERUM 96 mmol/L (98-107); CREATININE SERUM 0.7 mg/dL (0.7-1.3); GFR1 > 60 mL/min; GLUCOSE SERUM 266 mg/dL (74-106); POTASSIUM SERUM 4.6 mmol/L (3.5-5.1); SODIUM SERUM 129 mmol/L (136-145)
--- NOTE | 2019-05-22 07:29 | NUR ---
PHYSICAL THERAPY DAILY NOTES CO-SIGN All documentation done by the Feller Machine Operator for 05/22/19 has been reviewed. I agree with the documentation. Reviewed/Co-Signed by: Alyssa Navarro PT Documentation Done by:BRINDA HODGSON PTA FOR 05/21/19
--- NOTE | 2019-05-22 07:30 | NUR ---
RECEIVED PT FROM YU RAMON. PT LAYING IN BED IN SEMIFOWLERS. AA/OX4. FOLLOWS COMPLEX COMMANDS, RESPONDS TO VERBAL STIMULI, FACE SYMMETRICAL, SPEECH CLEAR. NO OLIVAREZ. NO DIZZINESS. CONTINUES TO REPORT DECREASED SENSATION BEGINNING FROM LOWER ABDOMEN RADIATING TO BLE. REPORTS PASSING GAS ORALLY/RECTALLY. NO ABD. PAIN. NO N/V. JUAREZ IN TACT DRAINING CLEAR/YELLOW URINE. IVS WNL TO RW/RFA. NO REDNESS, NO SWELLING, NO INFILTRATION. PATENT AND FLUSHES WELL. PT REFUSES TO TURN. PT REFUSES BARIATRIC AIRMATTRESS BED. SCDS IN PLACE. BED IN LOW POSITION. CALL LIGHT WITHIN REACH. INSTRUCTED TO USE CALL LIGHT TO CALL FOR ASSISTANCE PRN. VERBALIZED UNDERSTANDING. WILL CONTINUE TO MONITOR.
[2019-05-22 07:47] LABS: BASOPHIL % 0 % (0-2); RED CELL DISTRIBUTION WIDTH 15.7 % (11.5-14.5)
[2019-05-22 08:38] VITALS: BP 161/89
[2019-05-22 09:16] LABS: MAGNESIUM 1.9 mg/dL (1.8-2.4); PHOSPHOROUS 3.4 mg/dL (2.5-4.9)
--- NOTE | 2019-05-22 12:00 | NUR ---
PT COMPLAINT OF PAIN TO RW IV WHEN FLUSHING, IV REMOVED, CATHETER IN TACT. PRESSURE APPLIED. SITE WNL. NO REDNESS, NO SWELLING, NO INFILTRATION. IV INSERTED TO LW, 22 G. TOLERATED PROCEDURE WELL. AA/OX4. NO S/S OF ACUTE DISTRESS. PT REPORTS BACK PAIN DECREASED, RATES 2/10, TOLERABLE AT THIS TIME. NO N/V. NO SOB ON 2LNC. NO CHEST PAIN. IV WNL TO RFA, SALINE LOCKED. PATENT AND FLUSHES WELL. IV DRESSING CHANGED. JUAREZ IN TACT DRAINING CLEAR/YELLOW URINE. BED IN LOW POSITION. CALL LIGHT WITHIN REACH. WILL CONTINUE TO MONITOR.
[2019-05-22 12:11] VITALS: BP 128/88
--- NOTE | 2019-05-22 14:14 | NUR ---
BLOOD CULTURE RESULTS GRAM POSITIVE COCCI IN CLUSTER. PT ON VANCOCIN AND MAXIPIME. SEE MAR. CULTURE AND SENSITIVITY RESULTS PENDING. NO S/S OF ACUTE DISTRESS. NO FEVER, NO CHILLS, NO N/V AT THIS TIME, NO OLIVAREZ. NO DIZZINESS. NO ABDOMINAL PAIN. VS STABLE. DR. ORDONEZ AWARE OF BLOOD CULTURE RESULTS. NO NEW ORDERS. WILL CONTINUE TO MONITOR.
--- NOTE | 2019-05-22 17:39 | NUR ---
PT TAKEN FOR MRI, TAKEN BY RUDY. NO S/S OF ACUTE DISTRESS. TOLERATED TRANSFER WELL.
--- NOTE | 2019-05-22 18:21 | NUR ---
LATE ENTRY: PT RETURNED BACK FROM MRI. UNABLE TO HAVE MRI COMPLETED. TRANSFERRED TO BARIATRIC BED WITH AIR MATTRESS. AA/OX4. COMPLAINT OF SEVERE BACK PAIN, RATES 8/10, GIVEN PO PAIN MED, SEE MAR. NO S/S OF ACUTE DISTRESS. IV WNL TO RFA, NO REDNESS, NO SWELLING, NO INFILTRATION. PATENT AND FLUSHES WELL. IV WNL TO LW, SALINE LOCKED. BED IN LOW POSITION. CALL LIGHT WITHIN REACH. JUAREZ IN TACT DRAINING CLEAR/YELLOW URINE. WILL ENDORSE TO ONCOMING SHIFT.
--- NOTE | 2019-05-22 19:39 | NUR ---
INFORMED DR. LUNA MRI COULD NOT BE DONE PT COULD NOT FIT IN MRI MACHINE.
[2019-05-22 20:44] VITALS: BP 108/69
--- NOTE | 2019-05-22 22:38 | NUR ---
LATE ENTRY: 2000H- EYES CLOSED, EASILY AWAKENED. ORIENTED TO NAME, PLACE, TIME AND SITUATION. SPEECH CLEAR AND APPROPRIATE. BREATHING EVEN AND UNLABORED ON ROOM AIR. MED SURG PT. DENIES HAVING CHEST PAIN. STATED COMFORTABLE AT THIS TIME, PAIN LEVEL 4/10 PAIN TO BACK. REFUSED TO HAVE BACK ASSESSED, REFUSED TO TURN AND REPOSITION. FEET OFFLOADED FROM BED WITH PILLOWS. IV SITE TO RIGHT WRIST APPEARS SLIGHTLY SWOLLEN, COOL TO TOUCH. REMOVED, IV INTACT. NEW IV INSERTED BY NURSE SURU TO LEFT WRIST, 20G, FLUSHED WELL. CALL LIGHT WITHIN EASY REACH.
--- NOTE | 2019-05-22 23:26 | NUR ---
PT STATED HIS BED IS TOO HARD ON HIS BACK. SET THE THE BED TO OPTIREST. PT STATED HE FEELS A LITTLE BETTER. DILAUDID 1MG ADMINISTERED SLOW IVP FOR PAIN.
--- NOTE | 2019-05-23 00:27 | NUR ---
BLOOD TRANSFUSION COMPLETED. NO TRANSFUSION REACTIONS NOTED. IV TO LEFT AC FLUSHED WELL. NO ERYTHEMA OR INFILTRATION NOTED TO LEFT AC IV. SALINE LOCKED.
[2019-05-23 00:28] VITALS: BP 113/62
--- NOTE | 2019-05-23 00:37 | NUR ---
EYES CLOSED, SNORING LIGHTLY. BREATHING EVEN AND UNLABORED ON ROOM AIR.
--- NOTE | 2019-05-23 02:17 | NUR ---
EYES CLOSED, BREATHING UNLABORED. ON [facility] BED. IVPB OF VANCOMYCIN INFUSING
[2019-05-23 04:59] VITALS: BP 105/77
--- NOTE | 2019-05-23 06:25 | NUR ---
EYES CLOSED, EASILY AWAKENED. BREATHING EVEN AND UNLABORED ON ROOM AIR. CALL LIGHT WITHIN EASY REACH.
[2019-05-23 06:34] LABS: BASOPHIL % 0.1 % (0-2); PLATELET COUNT 247 x10^3mcL (130-400)
[2019-05-23 06:57] LABS: CALCIUM 8.8 mg/dL (8.5-10.1); CARBON DIOXIDE 29.4 mmol/L (21-32); CHLORIDE SERUM 93 mmol/L (98-107); CREATININE SERUM 1.1 mg/dL (0.7-1.3); GFR1 > 60 mL/min; GLUCOSE SERUM 329 mg/dL (74-106); PHOSPHOROUS 4.1 mg/dL (2.5-4.9); POTASSIUM SERUM 5.1 mmol/L (3.5-5.1); SODIUM SERUM 128 mmol/L (136-145)
--- NOTE | 2019-05-23 07:13 | NUR ---
AWAKE AND ALERT, BREATHING UNLABORED. STATED COMFORTABLE AT THIS TIME. ENDORSED TO NURSE LOUIE
[2019-05-23 07:23] LABS: RED CELL DISTRIBUTION WIDTH 15.9 % (11.5-14.5)
--- NOTE | 2019-05-23 07:45 | NUR ---
RECEIVED PT IN BED, AXOX4, VERBAL JAMAICAN, CALM AND COPPERATIVE WITH POC, CCHO DIET, TOLERATED WELL, DENIES PAIN/PRESSURE AT THIS TIME, NO FACIAL DROOP/SLURRED SPEECH NOTED, NON-COMPLIANT WITH TURNING SCHEDULE, PERRLA, NO REDNESS/DRAINAGE, RA, NO ACUTE REPS DISTRES/SOB NOTED, LUNGS CTA, ON 2L/MIN VIA NC, 98%, CHEST RISE SYMMETRICALLY, MS, PALP PULSES, TRACE EDEMA TO BLE, NO SENSATION FROM ABD TO BLE, BS ACTIVE X 4, ABD ROUND AND NON-TENDER TO TOUCH, INCONTINENT, FC, 16FR, CLEAR, YELLOW AND NO SEGDIMENT IN COLLECTING BAG, UNABLE TO MOVE BLE, PT, PT RESTING AND COMFORTABLE IN BED, ALL NEEDS MET, BED AT LOW POSITION, CALL LIGHT IN REACH, CONTINUE TO MONITOR
--- NOTE | 2019-05-23 08:35 | NUR ---
PT IN BED, RESTING, IN NO ACUTE DISTRESS, REPORT N/V, IVP ZOFRAN GIVEN, TOLERATED WELL, AM MEDS GIVEN PER MD ORDER VIA EMAR, TAKEN WELL, NO ASE NOTED AT THIS TIME, ALL NEEDS MET, REFUSED TO TURN TO SIDE, CONTINUE TO ENCOURAGE TO TURN Q2H PER PROTOCOL, CALL LIGHT IN REACH, BED AT LOW POSITION, CONTINUE TO MONITOR
[2019-05-23 09:27] VITALS: BP 123/70
--- NOTE | 2019-05-23 11:20 | NUR ---
PT IN BED, C/O BACK PAIN AND GEN PAIN, 06/06, DILAUDID IVP GIVEN PER MD ORDER VIA EMAR, TAKEN WELL, FAMILY AT BEDSIDE, CALL LIGHT IN REACH, BED AT LOW POSITION, CONTINUE TO [place]
--- NOTE | 2019-05-23 11:45 | NUR ---
PT RESTING IN BED, NO ACUTE DISTRESS NOTED, DENIES PAIN AT THIS TIME, PAIN REASSESSMENT DONE, 0/10, PT RELAX AND COMFORTABLE IN BED, GT LIGHT IN REACH, BED AT LOW POSITION, RAILS X 2, CONTINUE TO MONITOR
--- NOTE | 2019-05-23 12:03 | NUR ---
I HAVE REVIEWED THE DATA COLLECTION BY DRAGAN SANDERSON (NAME): ITALIA LOYA ENTERED ON (DATE/TIME):05/23/19 @ 7167 I CONCUR WITH THE DATA AND ANY EXCEPTIONS OR COMMENTS ARE LISTED BELOW:
--- NOTE | 2019-05-23 12:07 | NUR ---
PT RESTING IN BED, AXOX4, DENIES PAIN/DISCOMFORT AT THIS TIME, PT HAD EKG DONE AT BEDSIDE, ENCOURAGED TO TURN Q2H, STILL REFUSED, WILL CONTINUE TO ENCOURAGE TO TURN Q2H, CALL LIGHT IN REACH, BED AT LOW POSITION, RAILS X 2, CONTINUE TO MONITOR
--- NOTE | 2019-05-23 12:53 | NUR ---
PT RESTING IN BED, IN NO RESP ACUTE DISTRESS, DENIES PAIN/DISCOMFORT AT THIS TIME, INSULIN GIVEN PER BS CHECKED RESULT PER SLIDING SCALE PER MD ORDER VIA EMAR, TOLERATED WELL, NO ASE NOTED AT THIS TIME, CALL LIGH IN REACH, BED ST LOW POSITION, REFUSED TO TURN Q2H, WILL CONTINEU TO ENCOUARGE PT TO TURN PER PROTOCOL CONTINUE TO MONITOR
--- NOTE | 2019-05-23 13:45 | NUR ---
Initial Nutrition Assessment: 260/B JACINTO QUIÑONES MR IA Dx: intractable back pain, weakness PMHx: DM, HTN, chronic back pain PSHx: intestine resection for ulcer, back surgery excision with debridement for abd cellulitis., L inguinal hernia repair Labs: BG 329H, NA 128L, BUN 29H, A1C 11.7H Meds: Colace, D10%, humulin, lantus, Lopressor, Zofran, heparin Diet: CCHO PO Intake: 90% (05/22) pt was on CLD Ht: 180.34 cm (71") Wt: 151.9 kg (334#) BMI: 46.7 kg.m2 (morbid obesity) Bed scale: 334# IBW: 172# (78 kg) %IBW: 194 UBW: 400# Age: 49/M Food Allergies: coconut Skin: refused assessment Alvin: 14 Edema: trace to BLE GI: Nausea occasionally Last BM: 05/17 Per H&P, Pt is a 49yo male with PMH of DM, HTN and chronic back pain who was brought to the ER by Ambulance from home with complaints of intractable back pain. RDN Visit (05/23): Patient appeared to be morbidly obese. Patient said that he used to weight >400# about a year ago but lost all that weight unintentionally. Patient said that he ate 100% of his breakfast this morning. Paged Dr. Lundberg to discuss recommendations. Waiting for call back. Problem with: N/V/D/C: no Problems with: Chewing/Swallowing: no Current appetite: good Recent wt change: >70# x 1 year %wt change: 16% Vitamin/Supplement use: none Special diet at home: Diabetic Physical activity: chronic back pain so sedentary Nutrition education given: Diabetic diet education was provided using [facility] handout on 'type 2 Diabetes Nutrition Therapy'. Concepts like high fiber diet, portion control and label reading were discussed. Patient or the daughter did not have any diet related questions at this time. Food-drug interactions: Heparin- consistent vitamin K intake Education given: yes Estimated Nutritional Needs Based on adjusted body weight 96 kg Energy: 3232-1710 kcal/d (20-23 kcal/kg) - morbid obesity Protein: 77-96 g/d (0.8-1.0 g/kg) - preserve LBM Fluid: per doctor Nutrition Diagnosis 1. Unintentional weight loss related to medical condition as evidenced by self-reported weight loss of >70# x 1 year. 2. Impaired nutrient utilization related to endocrine insufficiency as evidenced by A1C 11.7. 3. Obesity related to excessive energy intake as evidenced by BMI 46.7 kg/m2. Intervention 1. Recommend cardiac diet along with CCHO diet. Monitor/Evaluate Goal: PO intake at least 75% of estimated needs Monitor: PO intake, Labs, GI function F/U in 7 days as low risk 05/30
--- NOTE | 2019-05-23 13:46 | NUR ---
1. Recommend cardiac diet along with CCHO diet.
--- NOTE | 2019-05-23 14:53 | NUR ---
PT SLEEPING IN BED, IN NO ACUTE DISTRESS, NO APPARENT OF PAIN/DISCOMFORT, CALL LIGH IN REACH, BED AT LOW POSITION, RAILS X 2, CONTINUE TO MONITOR
--- NOTE | 2019-05-23 16:28 | NUR ---
PT IN BED, C/O PAIN TO BACK AREA, 06/06, DILAUDID IVP GIVEN PER MD ORDER VIA EMAR, TAKEN WELL, NO ASE NOTED AT THIS TIME, RESTING IN BED, CALL LIGHT IN REACH, BED AT LOW POSITION, RAILS X 2, WILL CONTINUE TO MONITOR
--- NOTE | 2019-05-23 16:41 | NUR ---
PT RESTING IN BED, EYE CLOSED, REPORTED PAIN SUBSIDE TO TOLERABLE LEVEL, 2/10, ENCOURAGED TO USE RELAXATION TECHNIQUE FOR PAIN CONTROL, VERBALLY UNDERSTANDING, CALL LIGH IN REACH, BED AT LOW POSITION, RAILS X 2, CONTINUE TO MONITOR
[2019-05-23] MEDS ORDERED: DEC4I IV (17:47)
[2019-05-23] MEDS ORDERED: LANTI SQ (17:47)
[2019-05-23] MEDS ORDERED: VANCOMYCIN PER PHARM MC (17:47)
[2019-05-23] MEDS ORDERED: HUMULIN R100 U/1 M1 SC (17:47)
[2019-05-23] MEDS ORDERED: LAC30L PO (17:48)
[2019-05-23] MEDS ORDERED: FLE10 PO (17:48)
[2019-05-23] MEDS ORDERED: MSC15 PO (17:48)
[2019-05-23] MEDS ORDERED: ZES20 PO (17:49)
[2019-05-23] MEDS ORDERED: HEP5I SC (17:49)
[2019-05-23] MEDS ORDERED: METOPROLOL TART25 M1 PO (17:49)
[2019-05-23] MEDS ORDERED: HYDROMORPHONE1 MG/M1 IV (17:50)
[2019-05-23] MEDS ORDERED: TYL325 PO (17:50)
[2019-05-23] MEDS ORDERED: SIMETHICONE80 MG CH (17:50)
[2019-05-23] MEDS ORDERED: BG FS (17:50)
--- NOTE | 2019-05-23 18:06 | NUR ---
PT RESTING IN BED, EYE CLOSED, VERBAL RESPONSIVE, PT IN NO ACUTE DISTRESS, DENIED PAIN/DISCOMFORT, DENIES N/V/OLIVAREZ, DENIES SOB, RESP EVEN AND NON-LABORED, CHEST RISE SYMMETRICALLY, PT IN NO APPARENT DISTRESS, BS CHECKED AND INSULIN GIVERN PER SLIDING SCALE FOLLOWING MD ORDER VIA EMAR, TOLERATED WELL, NO ASE NOTED AT THIS TIME, SKIN W/D/I, IV SITE TO LEFT ARM ADN WIRST PATENT AND INFUSING WELL, CALL LIGHT IN REACH, BED AT LOW POSITION, RAILS X 2, ALL NEEDS MET, CONTINUE TO ENDORSE TO ONCOMING NURSE
--- NOTE | 2019-05-23 20:00 | NUR ---
PT A/A/O X4. DENIES DIZZINESS AND HEADACHE. BREATH SOUNDS CLEAR. BREATHING EVEN AND UNLABORED ON 2L NC. DENIES CHEST PAIN AND PRESSURE. BOWEL SOUNDS ACTIVE. NO C/O N/V AND ABD PAIN. PITTING EDEMA NOTED ON BLE. IV SALINE LOCK INTACT ON THE LEFT WRIST AND LEFT FOREARM. JUAREZ CATH INPLACE AND DRAINING TO GRAVITY WITH YELLOW URINE. MADE PT COMFORTABLE ON [place] ROM BED. PLACED CALL LIGHT WITH IN REACH. WILL CONTINUE TO MONITOR.
[2019-05-23 20:54] VITALS: BP 127/71
--- NOTE | 2019-05-23 21:28 | NUR ---
PT C/O NAUSEA. GAVE PT ZOFRAN IVP. PT TOLERATED IT WELL. WILL CONTINUE TO MONITOR.
--- NOTE | 2019-05-24 00:59 | NUR ---
PT C/O PAIN. ESTHER ARCHIBALD GAVE PT DILAUDID IVP. PT TOLERATED IT WELL. WILL CONTINUE TO MONITOR.
[2019-05-24 05:41] VITALS: BP 110/68
--- NOTE | 2019-05-24 05:55 | NUR ---
PT C/O PAIN. GAVE PT DILAUDID IVP. PT TOLERATED IT WELL. IV INTACT. JUAREZ CATH IN PLACE. MADE PT COMFORTABLE. WILL ENDORSE TO THE AM NURSE ACCORDINGLY.
[2019-05-24 06:07] LABS: BASOPHIL % 0.2 % (0-2); PLATELET COUNT 262 x10^3mcL (130-400)
[2019-05-24 06:20] LABS: CARBON DIOXIDE 27.1 mmol/L (21-32); CHLORIDE SERUM 89 mmol/L (98-107); CREATININE SERUM 0.9 mg/dL (0.7-1.3); GFR1 > 60 mL/min; GLUCOSE SERUM 315 mg/dL (74-106); MAGNESIUM 2.2 mg/dL (1.8-2.4); POTASSIUM SERUM 4.9 mmol/L (3.5-5.1)
[2019-05-24 07:09] LABS: SODIUM SERUM 122 mmol/L (136-145)
[2019-05-24 07:33] LABS: RED CELL DISTRIBUTION WIDTH 15.8 % (11.5-14.5)
--- NOTE | 2019-05-24 08:04 | NUR ---
PHYSICAL THERAPY DAILY NOTES CO-SIGN All documentation done by the Industrial Gas Fitter Helper for 05/24/19 has been reviewed. I agree with the documentation. Reviewed/Co-Signed by: Alyssa Navarro PT Documentation Done by:REMA PARRY PTA FOR 05/23/19
[2019-05-24 08:29] VITALS: BP 102/62
--- NOTE | 2019-05-24 09:51 | NUR ---
SERGIO 0730 - RECEIVED PATIENT FROM NIGHT NURSE. AWAKE, ALERT AND ORIENTED X 4. RESPIRATIONS REGULAR. IV SALINE LOCKED. JUAREZ CATHETER DRAINING JULIUS URINE WITH SEDIMENTS. PATIENT HAS NO FEELING OR MOVEMENT BELOW LEVEL OF HIPS. ON SPECIALIZED BED FOR TURNING/ROTATION. SAT UP IN BED FOR BREAKFAST. AT 0800 - PATIENT REPOSITIONED FOR COMFORT WITH PILLOWS. BED TURNING FOR REPOSITIONING OF PATIENT Q 15 MIN IS ACTIVE. CALL WAS PLACED FOR DR SHEPPARD TO NOTIFY OF NA LEVEL OF 122. AT 0940 - MEDICATED WITH DILAUDID PER EMAR FOR PERSISTANT SEVERE THORACIC SPINE PAIN. IV VANCOMYCIN NOW IN PROGRESS. SPOKE WITH DR ORDONEZ ABOUT NA LEVEL. SHE WILL PLACE ORDER FOR NA PILLS. ALSO MADE AWARE OF MS CONTIN ORDER HAVING . AT 0955 - SEEN BY DR WRIGHT AND MEDICAL TEAM DOCTORS. SPOKE WITH PATIENT ABOUT BLOOD CULTURE RESULTS AND NEED FOR NEUROSURGERY TO SPINE. PLAN TO TRANSFER TO HIGHER LEVEL OF CARE, POSSIBLY [facility]. PATIENT VERBALIZED UNDERSTANDING.
[2019-05-24 13:10] VITALS: BP 102/62
--- NOTE | 2019-05-24 14:14 | NUR ---
AT 1310 - RECEIVED WORD THAT PATIENT HAS BEEN ACCEPTED AT [facility] UNDER CARE OF DR AUGUSTE AND NEUROSURGEON DR CHATMAN. TRANSPORT BY AMA AT 1500 HR. AT 1330 - JUAREZ CATHETER CARE DONE. ALSO COLLECTED URINE AT THIS TIME AND TAKEN TO LAB FOR URINE OSMO, K+ AND NA. PATIENT WASHED AND PREPARED FOR TRANSFER. AT 1400 - COPIES OF PRINTED DISCHARGE INFORMATION GIVEN AND EXPLAINED TO PATIENT. PACKET PREPARED FOR [facility]. PATIENT SIGNED TRANSFER ACKNOWLEDGEMENT. [facility] CAME AND EVALUATED PATIENT FOR TRANFER REQUIREMENTS. HE WILL NEED EXTENDED GURNEY. TRANSPORT AFTER 1500 HR.
[2019-05-24 14:25] VITALS: BP 113/68
--- NOTE | 2019-05-24 15:15 | NUR ---
AT 1435 - MEDICATED WITH IV DILAUDID PER EMAR, FOR C/O PERSISTANT BACK PAIN. AT 1450 - REPORT GIVEN TO DRAGAN SMITH AT [facility]. AWAITING TRANSPORT.
--- NOTE | 2019-05-24 15:45 | NUR ---
AT 1540 - DISCHARGED TO [facility] VIA [facility] ON GURNEY. REPROT AND PACKAGE GIVEN TO [facility] ATTENDANTS. PATIENT LEFT WITH IV SALINE LOCK AND JUAREZ CATHETER.
--- NOTE | 2019-05-24 15:56 | NUR ---
PATIENT'S MOTHER, YOEL PER PHONE - NOTIFIED OF PATIENT TRANSFER.
--- NOTE | 2019-05-25 07:08 | NUR ---
PHYSICAL THERAPY DAILY NOTES CO-SIGN All documentation done by the Children Counselor for 05/25/19 has been reviewed. I agree with the documentation. Reviewed/Co-Signed by: Alyssa Navarro PT Documentation Done by:BRINDA HODGSON PTA FOR 05/24/19
== END 2019-05-24 15:40 | disposition short-term general hospital (02) | DRG 871 ==
LOC: ED 07:37 → MU 12:05
PROVIDERS: Emergency Medicine; Internal Medicine; ADMIT General Practice
DX: A41.01 Sepsis due to Methicillin susceptible Staphylococcus aureus (principal); G06.1 Intraspinal abscess and granuloma; E43 Unspecified severe protein-calorie malnutrition; G95.20 Unspecified cord compression; Z68.42 Body mass index [BMI] 45.0-49.9, adult; E87.0 Hyperosmolality and hypernatremia; G82.20 Paraplegia, unspecified; G89.29 Other chronic pain; E11.65 Type 2 diabetes mellitus with hyperglycemia; I50.9 Heart failure, unspecified; M54.9 Dorsalgia, unspecified; E78.5 Hyperlipidemia, unspecified; I11.0 Hypertensive heart disease with heart failure; M48.061 Spinal stenosis, lumbar region without neurogenic claudication; I25.10 Atherosclerotic heart disease of native coronary artery without angina pectoris; M48.9 Spondylopathy, unspecified; K59.00 Constipation, unspecified; E83.42 Hypomagnesemia; E66.01 Morbid (severe) obesity due to excess calories; K21.9 Gastro-esophageal reflux disease without esophagitis; J30.81 Allergic rhinitis due to animal (cat) (dog) hair and dander; Z98.1 Arthrodesis status; Z82.49 Family history of ischemic heart disease and other diseases of the circulatory system; Z83.3 Family history of diabetes mellitus; Z91.14 Patient's other noncompliance with medication regimen; Z91.018 Allergy to other foods
CPT/HCPCS: 82962; 83880; 97110-GP; 97530-GP; A9577; G0378; J0692; J1100; J1170; J1644; J1815; J2270; J2405; J3370; J3475; J3490; J7030; Q0092; Q9966; Q9967